=== PATIENT | female | born 1970 | race Caucasian/White ===

== ENCOUNTER 2023-11-11 08:23 | Outpatient (CLI) | payer OTHER, SELFPAY ==
--- OUTSIDE RECORDS SUMMARY | 2023-11-11 08:27 | XMS_ITS | Clinical Summary ---
Author Organization [facility] Address [place], [place] [address] Care Team Providers Care Thermodynamicist Name Role Phone Nonstaff, Doctor Primary Care Provider Unavailab le Allergies Active Allergy Reactions Criticality Noted Date Comments Penicillins 06/15/2006 OK with Augmentin Medications Medication Sig Dispensed Refills Start Date End Date Status CALCIUM ANTACID 500 MG CHEWABLE TAB 0 06/15/2006 Active ASPIRIN 325 MG TAB, DELAYED RELEASEIndications:Ty pe 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, not stated as uncontrolled one daily 0 06/16/2006 Active VALTREX 500 MG TABIndications:Genita l herpes, unspecified 1 CAPSULE BY MOUTH EVERY DAY 30 5 01/03/2007 Active ALBUTEROL SULFATE HFA 90 MCG/ACTUATION AEROSOL INHALER Inhale 2 puffs every 4 hours as needed 17 1 05/08/2007 Active NOVOLOG 100 UNIT/ML SUBQ CARTRIDGEIndications: Type 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, not stated as uncontrolled 47 units once daily 2 bottles 12 11/02/2007 Active SOFTCLIX LANCETSIndications:Ty pe 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, not stated as uncontrolled tests 6 times daily 1 box 12 11/03/2007 Active VITAMIN ORAL Take one daily Active ZYRTEC 10 MG TAB TAKE ONE TABLET BY MOUTH EVERY DAY 30 Each 11 11/05/2008 Active NASONEX 50 MCG/ACTUATION SPRAYIndications:Kane rgic rhinitis, cause unspecified USE 2 SPRAYS IN EACH NOSTRIL EVERY MORNING 17 Each 12 03/24/2009 Active NIFEdipine (PROCARDIA XL) 60 mg tablet TAKE ONE TABLET DAILY 30 Each 9 06/03/2009 Active blood sugar diagnostic (ONE TOUCH ULTRA TEST) strip Test Eight Times a day 100 Strip 0 11/17/2009 Active mupirocin 2% topical (BACTROBAN OINTMENT) 2 % ointment APPLY TO AFFECTED AREA THREE TIMES DAILY 22 g 0 09/17/2013 Active CPAPIndications:MICKEY (obstructive sleep apnea) CPAP machine for home use at pressure 9.4 cmw, nasal mask x1/3month with nasal pillows x 2/mo 1 Each 11 06/14/2023 Active Active Problems Problem Noted Date Diagnosed Date MICKEY 09/09/2005 AHI- 16 06/14/2023 HTN (hypertension) 06/30/2008 Overview: Updated by system to replace inactive record Allergic rhinitis, cause unspecified 11/02/2007 Tobacco use disorder 09/20/2006 Unspecified sleep apnea 06/16/2006 Overview: CPAP Genital herpes, unspecified 06/15/2006 Overview: Herpes, Genital Exercise induced bronchospasm 06/15/2006 DIABETES MELLITUS, INSULIN DEPENDENT (IDDM) A1C< 7.5 06/06/1972 Resolved Problems Problem Noted Date Diagnosed Date Resolved Date Headache(784.0) 06/15/2006 09/20/2006 Overview: Chronic Immunizations Name Administration Dates Next Due Pneumococcal conj 7-Valent (Prevnar 7) 8 Td (Age >=7 Years) 08/05/1997 Tdap 11/02/2007 Family History Medical History Relation Name Comments Heart Disease Father Hypertension Father Cancer Maternal Grandfather Leukemi a Other Maternal Grandmother Macular Degeneration Other Mother Fibromyalgia /C eliac/Colon Polyps Diabetes Other MGGM Other Paternal Grandmother alzheim ers Other Sister 2 Autoimmune D/o Relation Name Status Comments Father Alive Maternal Grandfather Maternal Grandmother Mother Alive Other Paternal Grandfather Paternal Grandmother Sister 1 Alive Sister 2 Social History Tobacco Use Types Packs/Day Years Used Date Smoking Tobacco: Former Cigarettes 0.3 18 1 - 03/06/2006 Passive Smoke Exposure: Past Comments:2-3 cigs per day Alcohol Use Standard Drinks/Week Comments Yes 0 (1 standard drink = 0.6 oz pur e alcohol) 1-2 x/week Social Connections Answer Date Recorded Frequency of Communication with Friends and Fami ly Not on file 06/14/2023 Sex and Gender Information Value Date Recorded Sex Assigned at Not on file Gender Identity Not on file Sexual Orientation Not on file Obstetrics History Para Term AB IAB SAB Ectopic Multiple Livin g Live Births 1 0 0 0 1 0 1 0 0 0 Date Outcome GA Total Labor Labor/2nd/3rd Weight Sex Delivery Anes PTL Tory A1 A5 Name Cl in 05/03 SAB 10w 0d Last Filed Vital Signs Vital Sign Reading Time Taken Comments Blood Pressure 166/80 06/14/2023 4:15 PM PROCESS DEVELOPMENT CHEMIST Pulse 75 06/14/2023 4:13 PM PROCESS DEVELOPMENT CHEMIST Temperature 37.6 ??C (99.7 ??F) 04/09/2008 1:32 PM CS T Respiratory Rate 18 03/10/2009 9:27 AM CDT Oxygen Saturation 100% 06/14/2023 4:13 PM PROCESS DEVELOPMENT CHEMIST Inhaled Oxygen Concentration - - Weight 69.5 kg (153 lb 3.2 oz) 06/14/2023 4:13 P M PROCESS DEVELOPMENT CHEMIST Height 164.5 cm (5' 4.75) 06/14/2023 4:13 PM CS T Body Mass Index 25.69 06/14/2023 4:13 PM PROCESS DEVELOPMENT CHEMIST Plan of Treatment Health Maintenance Due Date Last Done Comments Pneumococcal series for age 6-64 (1 of 2 - PCV) 1974 08/14/1997 Depression screening for age 12+ 1980 HIV for age 15-65 11/29/1983 Hepatitis C screening for ag e 18-79 1986 Hepatitis B series for Diabe tiffanie (1 of 3 - 19+ 3-dose series) 11/29/1987 Colonoscopy through age 75 2013 Lipids for age 45-75 2013 06/28/2008, 03/06/2007, 01/13/2006, Additional history exists Mammogram for age 45-75 2013 06/21/2006 Tetanus booster 11/01/2017 11/02/2007, 08/05/1997 Zoster (shingles) series for age 50+ (1 of 2) 2018 Pap test for age 21-65 10/09/2021 9, 10/09/2018, 08/17/2013, Additional history exists COVID-19 vaccine series (2022- season) 2023 02/18/2022, 04/15/2021, 07/31/2020, Additional history exists Influenza for age 50-64 02/05/2024 BMI (ht and wt on same day) for age 18+ 06/14/2024 06/14/2023 Tdap Completed 11/02/2007 Procedures Procedure Name Priority Date/Time Associated Diagnosis Comments ROUTE SPECIALIST THIN PREP PAP SCREEN IMAGED Routine 10/09/2018 9:00 AM CDT LIPID PANEL Routine 06/28/2008 9:12 AM PROCESS DEVELOPMENT CHEMIST DIABETES MELLITUS, INSULIN DEPENDENT (IDDM) XR MAMMO SCREENING BILATERAL (IA) Routine 06/21/2006 Screening Mammogram Other from Last 3 Months or Most Recently Relevant to Health Maintenance Results * ROUTE SPECIALIST THIN PREP PAP SCREEN IMAGED (10/09/2018 9:00 AM CDT) Case Report Gynecologic Cytology Report ? Case: [id number] ? Authorizing Provider: ??Rachel Deshpande MD ?Collected: ? 10/09/2018 0900 ? Ordering Location: ? [facility] ?Received: ?10/10/2018 0943 ? First Screen: ?Kade, Scott ? Specimen: ?ROUTE SPECIALIST ThinPrep Vial Screening, Cervical/Vaginal ? 10/18/2018 2:55 PM CDT [facility] INTERPRETATION/ RESULT NEGATIVE FOR INTRAEPITHELIAL LESION OR MALIGNANCY (NIL) (none) 10/18/2018 2:55 PM CDT [facility] IMEN ADEQUACY Satisfactory for evaluation Endocervical component present 10/18/2018 2:55 PM CDT [facility] HPV REQUEST HPV and PAP 10/18/2018 2:55 PM CDT [facility] Date of LMP 10/03/2018 10/18/2018 2:55 PM CDT [facility] Last Pap Date 08/17/2013 10/18/2018 2:55 PM CDT [facility] Last Pap Result NIL 9 2:55 PM CDT [facility] Comment:-HPV Automated Review Successful 10/18/2018 2:55 PM CDT [facility] Comment:Specimen processed s uccessfully by automated microsoft net developer device, ThinPrep Imaging System, [employer] ANCILLARY TESTING ROUTE SPECIALIST HPV Ordered, Please see separate report 10/18/2018 2:55 PM CDT [facility] Note The pap test is a screening technique, not a diagnostic procedure. ??It is used primarily to screen for squamous cancers and precursor lesions. ??Published studies have shown that it is subject to both false negative and false positive results. ??The pap test should not be used as the sole means to diagnose or exclude pre-malignant and malignant lesions. Cytology is screened and interpreted at [facility] - [address], [place] [address] and [facility] - [address]; [place] [address] and [facility] - [address]; [place] [address] and [facility] [address]; [place] [address] 10/18/2018 2:55 PM CDT [facility] Other (Cervical/Vagina l) 10/09/2018 9:00 AM CDT 10/10/2018 9:43 AM CDT Rachel Deshpande MD PATHOLOGY/CYTOLOGY [facility] [address] [place] [address], * LIPID PANEL (06/28/2008 9:12 AM PROCESS DEVELOPMENT CHEMIST) CHOLESTEROL,TOTAL 192 110 - 199 mg/dL [facility] TRIGLYCERIDES 73 <150 mg/dL [facility] HDL CHOLESTEROL 86 >40 mg/dL [facility] CHOL/HDL RATIO 2.23 <4.51 [facility] LDL CHOLESTEROL 91 <131 mg/dL [facility] PATIENT STATUS Fasting [facility] Blood specimen (specimen) BLOOD SPECIMEN / Unknown 06/28/2008 9:12 AM PROCESS DEVELOPMENT CHEMIST 06/28/2008 9:00 AM PROCESS DEVELOPMENT CHEMIST Pramod Savage MD CHEMISTRY [facility] [address] [place] [address] * XR MAMMO SCREENING BILATERAL (06/21/2006) Anatomical Region Laterality Modality BREASTS, Breast Left, Breast Right Bilateral Other Nicolasa Pimentel CONTINUITY PERSON MAMMO from Last 3 Months or Most Recently Relevant to Health Maintenance Care Teams Thermodynamicist Relationship Specialty Start Date End Date Nonstaff, Doctor NON STAFF DOCTOR PCP - General 11/14/09
--- OUTSIDE RECORDS SUMMARY | 2023-11-11 08:28 | XMS_ITS | Encounter Summary ---
Author Organization [facility] Address [address], [place] [address] Care Team Providers Care Yarn Bleaching Machine Operator Name Role Phone Daniel Zelaya MD Primary Care Provider [phone] Encounter Details Date Type Department Care Team (Late st Contact Info) Description 11/08/2023 E-Visit [place] [address] Family Medicine [address] [place] [address] [place] [address] [place], [place] [id number] Social History Tobacco Use Types Packs/Day Years Used Date Smoking Tobacco: Former Cigarettes 0 06/06/1992 - 06/06/2007 Smokeless Tobacco: Never Alcohol Use Standard Drinks/Week Comments Yes 2 (1 standard drink = 0.6 oz pur e alcohol) PHQ-2 Answer Date Recorded PHQ-2 Score 0 11/03/2023 Financial Resource Strain Answer Date R ecorded Is it hard for you to pay fo r the very basics like food, housing, medical care or heating? No 11/08/2022 Food Insecurity Answer Date Recorded Does your food run out before you have the money to buy more? No 11/08/2022 Transportation Needs Answer Date Record ed Does a lack of transportatio n keep you from your medical appointments or from getting your medications? No 023 Sex and Gender Information Value Date Recorded Sex Assigned at Female 05/05/2021 8:28 PM MAINTENANCE DATA ANALYST Gender Identity Female 05/05/2021 8:28 PM MAINTENANCE DATA ANALYST Sexual Orientation Straight 05/05/2021 8: 28 PM MAINTENANCE DATA ANALYST documented as of this encounter Plan of Treatment Upcoming Encounters Date Type Department Care Team (Late st Contact Info) Description 11/22/2023 3:00 PM CDT Appointment [facility] [address] [place] [address] Demetris Alvarez Scheduled Procedures Name Priority Associated Diagnoses Date/Ti me RELEASE TRIGGER FINGER Trigger ring finger of right hand Trigger ring finger of left hand documented as of this encounter Visit Diagnoses Not on filedocumented in this encounter Care Teams Yarn Bleaching Machine Operator Relationship Specialty Start [place] [address] [place] [address] PCP - General Family Practice 08/23/22 documented as of this encounter
--- OUTSIDE RECORDS SUMMARY | 2023-11-11 08:28 | XMS_ITS | Encounter Summary ---
Author Organization [facility] Address [address], [place] [address] Care Team Providers Care Patient Escort Name Role Phone Daniel Zelaya MD Primary Care Provider [phone] Reason for Referral * Procedure/Equipment (Routine) - New Request Specialty Diagnoses / Procedures Referred By Kristie white Referred To Contact Diagnoses Charcot's joint of foot in type 1 diabetes mellitus (HRC) Pre-ulcerative calluses Type 1 diabetes mellitus with peripheral autonomic neuropathy (HRC) Suraj Barriga DPM [address] [place] [address] Referral ID Status Reason Start Date Expiration Date V isits Requested Visits Authorized [id number] New Request 10/25/2023 01/23/2025 1 1 Scheduling Instructions Your clinician has recommended an appointment with [facility]. You may call [phone] to schedule your appointment. We suggest you call your health insurance company about your coverage and benefits for this appointment. Question Answer Direct patient to which orthotic vendor? [facility]? Multi-Density Accomodative Insert B/L Reason for Visit * Reason Comments Orders Needed Encounter Details Date Type Department Care Team (Late st Contact Info) Description 10/25/2023 Telephone [facility] [address] [facility] [address] [place] [address] Suraj Barriga DPM [address] [place] [address] Orders Needed Social History Tobacco Use Types Packs/Day Years Used Date Smoking Tobacco: Former Cigarettes 0 06/06/1992 - 06/06/2007 Smokeless Tobacco: Never Alcohol Use Standard Drinks/Week Comments Yes 2 (1 standard drink = 0.6 oz pur e alcohol) PHQ-2 Answer Date Recorded PHQ-2 Score 0 09/22/2023 Financial Resource Strain Answer Date R ecorded [...] Sex Assigned at Female 05/05/2021 8:28 PM MAGENTO DEVELOPER Gender Identity Female 05/05/2021 8:28 PM MAGENTO DEVELOPER Sexual Orientation Straight 05/05/2021 8: 28 PM MAGENTO DEVELOPER documented as of this encounter Nursing Notes * Amparo Bunn RN - 10/26/2023 8:11 AM CDT Patient was called. She will call and set up an appointment with O&P. No other questions at this time. AFIA Christensen * Suraj Barriga DPM - 10/25/2023 8:48 PM CDT Order signed * Amparo Bunn RN - 10/25/2023 2:13 PM CDT Patient stopped into the [place] [facility] [employer] [facility] front desk clerk today stating she was supposed to get an order for Orthotics at her last visit, and she didn't. [place]oor Operator stated I would route this over to Dr. Barriga for orders. [place] Operator will call patient once this is complete. Amparo, RN documented in this encounter Plan of Treatment Upcoming Encounters Date Type Department Care Team (Late st Contact Info) Description 11/22/2023 3:00 PM CDT Appointment [facility] [address] [place] [address] Demetris Alvarez Scheduled Procedures Name Priority Associated Diagnoses Date/Ti me RELEASE TRIGGER FINGER Trigger ring finger of right hand Trigger ring finger of left hand Scheduled Referrals Name Type Priority Associated Diagnoses Orde r Schedule Orthotics Order Referral Routine Charcot's joint of foot in type 1 diabetes mellitus (HRC) Pre-ulcerative calluses Type 1 diabetes mellitus with peripheral autonomic neuropathy (HRC) Ordered: 10/25/2023 documented as of this encounter Visit Diagnoses Diagnosis Charcot's joint of foot in type 1 diabetes mellitus (HRC)- Primary Type I (juvenile type) diabetes mellitus with neurological manifestations, not stated as uncontrolled Pre-ulcerative calluses Corns and callosities Type 1 diabetes mellitus with peripheral autonomic neuropathy (HRC) Type I (juvenile type) diabetes mellitus with neurological manifestations, not stated as uncontrolled documented in this encounter Care Teams Patient Escort Relationship Specialty [place] [address] [place] [address] PCP - General Family Practice 08/23/22 documented as of this encounter
--- OUTSIDE RECORDS SUMMARY | 2023-11-11 08:28 | XMS_ITS | Encounter Summary ---
[facility] Address [address], [place] [address] Care Team Providers Care Darkroom Worker Name Role Phone Daniel Zelaya MD Primary Care Provider [phone] Reason for Visit * Reason Comments PRE-OP EXAM Encounter Details Date Type Department Care Team (Latest Contact Info) Description 11/03/2023 2:00 PM CDT Pre-Op Visit [place] [address] [facility] [id number] [place] [address] [phone] [place] [address] [place] [address] Preop examination (Primary Dx); Polyp of colon, unspecified part of colon, unspecified type; Dyslipidemia (HRC); Essential hypertension (HRC); Charcot's joint arthropathy in type 1 diabetes mellitus (HRC); Type 1 diabetes mellitus with diabetic polyneuropathy (HRC); Depression, recurrent (HRC) Social History Tobacco Use Types Packs/Day Years [...] Sex Assigned at Female 05/05/2021 8:28 PM FLARE MAKER Gender Identity Female 05/05/2021 8:28 PM FLARE MAKER Sexual Orientation Straight 05/05/2021 8: 28 PM FLARE MAKER documented as of this encounter Last Filed Vital Signs Vital Sign Reading Time Taken Comments Blood Pressure 134/80 11/03/2023 2:03 PM CDT Pulse 81 11/03/2023 2:03 PM CDT Temperature - - Respiratory Rate 16 11/03/2023 2:03 PM CDT Oxygen Saturation - - Inhaled Oxygen Concentration - - Weight 69.4 kg (153 lb) 11/03/2023 2:03 PM CDT Height - - Body Mass Index 26.47 10/25/2023 2:34 PM CDT documented in this encounter Patient Instructions * Patient Instructions* Daniel Zelaya MD - 11/03/2023 2:00 PM CDT Pre-op Instructions: Follow clean out instructions per GI. You can take your medications with a small sip of water unless directed otherwise. lisinopril (ZESTRIL) 20 MG tablet [[id number]] - Continue taking usual doses of this medication. aspirin, enteric-coated 81 MG enteric coated tablet [[id number]] - Do not take for 1 week prior to procedure. HUMALOG 100 UNIT/ML injection vial [[id number]], insulin glargine (BASAGLAR) 100 UNIT/ML KWIKPEN [[id number]], insulin lispro (HUMALOG) 100 UNIT/ML injection vial [[id number]], insulin lispro (HUMALOG) 100 UNIT/ML pen cartridge [[id number]] - Consult with your wholesale manager. Follow your individualized medication recommendations as described above. In addition, please stop all acnc-nrb-loyoduu medications including aspirin, ibuprofen (Advil, Motrin), naproxen (Aleve, Naprosyn), herbal remedies and supplements one week prior to procedure unless directed otherwise by your care team. You may continue to take acetaminophen (Tylenol) up to the dayof your procedure. Continue all other medications as currently taking. Let your care team know if you have questions. On the day of your procedure, do not wear any hair product including hair sprays and gels and avoidusing body sprays and deodorants/antiperspirants. Bring with you to the site of the procedure: Any oral appliances or CPAP equipment related to sleep apnea Any other health-related equipment or devices you use daily documented in this encounter Progress Notes * Daniel Zelaya MD - 11/03/2023 2:00 PM CDT Pre-Operative Assessment 11/03/2023 ET Amb PreOp Assessment Details Procedure colonoscopy Surgeon Dr. Chowdary Location Other Other Location Name [facility] Procedure Date 11/11/2023 Tonia Nieves is a 52 y.o. old female here for pre-operative evaluation for procedure noted above. The patient has had surgery previously without any anesthesia complications and denies any family history ofanesthesia complications. She denies any chest pain or shortness of breath with exertion and has otherwise been feeling well and at baseline. They voice no further concerns at this time. Patient Active Problem List Diagnosis Date Noted Major depressive disorder, single episode, unspecified ([facility]) Trigger ring finger of right hand 02/22/2023 Trigger ring finger of left hand 02/22/2023 Charcot's joint arthropathy in type 1 diabetes mellitus ([facility]) 11/09/2022 Overview Note: Managed by Podiatry Dr. Barriga. 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 Uses insulin pump. Insulin pump status ([facility]) 02/16/2012 Encounter for long-term (current) use of insulin ([facility]) 02/16/2012 Type 1 diabetes mellitus with neurological manifestations ([facility]) 02/11/2012 Overview Note: Managed by Endocrinology. Uses insulin pump. Diabetic polyneuropathy ([facility]) 02/11/2012 Exercise induced bronchospasm ([facility]) 06/15/2006 Genital herpes ([facility]) 06/15/2006 Overview Note: Herpes, Genital Past Medical History: Diagnosis Date Alcohol ingestion, more than 4 drinks/day 02/11/2012 DM type 1 (diabetes mellitus, type 1) ([facility]) 10/19/2012 Polyneuropathy in diabetes(357.2) ([facility]) 02/11/2012 Type I (juvenile type) diabetes mellitus with neurological manifestations, not stated as uncontrolled(250.61) ([facility]) 02/11/2012 Past Surgical History: Procedure Laterality Date CATARACT REMOVAL Bilateral Current Outpatient Medications Medication Instructions amLODIPine (NORVASC) 2.5 mg, Oral, DAILY aspirin, enteric-coated 81 mg, Oral, DAILY BD VEO INSULIN SYRINGE U/F 0.3ml 31g x 15/64 BIOTIN OR 5,000 mg, Oral buPROPion (WELLBUTRIN XL) 150 mg, Oral, DAILY Calcium-Vitamins C & D (CALCIUM/C/D OR) No dose, route, or frequency recorded. Continuous Blood Gluc Chef French (DEXCOM G6 PRODUCTION PLANNING SUPERVISOR) [place] Use once Continuous Blood Gluc Sensor (DEXCOM G6 SENSOR) Use once every 10 days Continuous Blood Gluc Transmit (DEXCOM G6 TRANSMITTER) CHANGE ONCE EVERY 90 DAYS. drug not in computer Hair volume estradiol (VIVELLEDOT) 0.05 MG/24HR biweekly patch APPLY 1 PATCH TOPICALLY TO THE SKIN 2 TIMES A WEEK fluticasone propionate (FLONASE) 50 MCG/ACT nasal solution 2 Sprays, Both Nostrils, DAILY glucagon (rDNA) (GLUCAGON) 1 mg, Intramuscular, PRN HUMALOG 100 UNIT/ML injection vial TAKE UP TO 55 UNITS DAILY insulin glargine (BASAGLAR) 100 UNIT/ML KWIKPEN For use when off insulin pump. Max daily of 40 units. insulin lispro (HUMALOG) 100 UNIT/ML injection vial Take 55 units daily in pump. Ok to dispense at lispro insulin lispro (HUMALOG) 100 UNIT/ML pen cartridge Inject up to 55 units daily via pump Insulin Pen Needle (INSULIN PEN NEDLES) 32G X 4 MM lisinopril (ZESTRIL) 20 mg, Oral, DAILY loratadine (CLARITIN) 10 mg, Oral, DAILY (NS) Magnesium 400 MG CAPS No dose, route, or frequency recorded. Multiple Vitamins-Minerals (MULTIVITAMIN ADULT OR) 1 Tablet, DAILY (NS) mupirocin (BACTROBAN) 2 % ointment Apply to affected area twice a day for 10 days. omega-3 fatty acids (AKA MAXEPA,FISH OIL) 2 g, Oral, DAILY progesterone (PROMETRIUM) 100 mg, Oral, DAILY rosuvastatin (CRESTOR) 2.5 mg, Oral, DAILY Allergies Allergen Reactions Sulfa Antibiotics Other, see comments and Hives Itchy, difficult breathing Sulfamethoxazole-Trimethoprim Hives Tegaderm Hydrocolloid [Duoderm Hydroactive] Rash If pt sprays area with benadryl or betadine prior to applying the tegaderm film pt does not get rash/pt. Social History Occupational History Not on file Tobacco Use Smoking status: Former Current packs/day: 0.00 Types: Cigarettes Start date: 06/06/1992 Quit date: 06/06/2007 Years since quittin.4 Smokeless tobacco: Never Vaping Use Vaping status: Never Used Substance and Sexual Activity Alcohol use: Yes Alcohol/week: 2.0 - 3.0 standard drinks of alcohol Types: 2 - 3 Standard drinks or equivalent per week Drug use: Not on file Sexual activity: Yes Partners: Male control/protection: None Patient's last menstrual period was 04/21/2022 (approximate). History reviewed. No pertinent family history. Review of Systems: 11/03/2023 ET Amb PreOp Assessment Sx Have you had a heart attack in the last 30 days? No Have you experienced chest tightening or chest pressure with activity? No Do you wake at night with difficulty breathing? No Do you have swelling in your feet or ankles? No Do you get short of breath if lying flat at night? No Do you hear wheezing or whistling when you breathe? No Have you had a cough, runny nose, or cold symptoms in the last 2 weeks? No Have you tested positive for Covid in the last 6 months? No Do you have a long-standing cough? No Do you snore or are you sleepy during the day? Yes Do you have any symptoms due to a recent concussion? No Have you taken Aspirin, Ibuprofen (Advil) or Naproxen (Aleve) in the last 7 days? Yes Do you or close relatives have a history of a severe or life-threatening reaction to anesthesia? No Estimated Functional Capacity: Can you climb one flight of stairs, or walk up a gradual uphill without stopping? yes, functional capacity is more than or equal to 4 METS Objective BP 134/80 (BP Location: Left Arm, BP Cuff Size: Regular) Pulse 81 Resp 16 Wt 153 lb (69.4 kg) LMP 04/21/2022 (Approximate) BMI 26.47 kg/m?? Physical Exam: General Appearance: alert, well appearing, and in no apparent distress Eyes: conjunctiva normal ENT: oropharynx clear Neck: no cervical lymphadenopathy Heart: regular rate and rhythm and no murmurs, gallops or rubs Lungs: clear to ausculation and no wheezes, rales or rhonchi Abdomen: soft, nondistended, nontender, no palpable masses, and no organomegaly Extremities: no edema Skin: no rashes on exposed skin Neurologic: normal speech Data: Labs: Lab Results Component Value Date Hemoglobin A1C 6.7 (H) 05/16/2020 Hemoglobin A1C (Rapid) 6.4 (H) 10/25/2023 Lab Results Component Value Date WBC 5.0 10/25/2023 RBC 3.70 (L) 10/25/2023 Hemoglobin 11.5 (L) 10/25/2023 HCT 34.7 (L) 10/25/2023 MCV 93.8 10/25/2023 RDW 12.9 10/25/2023 Platelets 237 10/25/2023 ECG: Not indicated for this procedure. Assessment/Plan Patient is medically optimized for planned procedure(s). ICD-10-CM 1. Preop examination Z01.818 2. Polyp of colon, unspecified part of colon, unspecified type K63.5 3. Dyslipidemia (HRC) E78.5 4. Essential hypertension (HRC) I10 5. Charcot's joint arthropathy in type 1 diabetes mellitus (HRC) E10.610 6. Type 1 diabetes mellitus with diabetic polyneuropathy (HRC) E10.42 7. Depression, recurrent (HRC) F33.9 Special risks: Patient's diabetes adequately controlled (A1C < 8). Medication recommendations: Patient Instructions Pre-op Instructions: Follow clean out instructions per GI. You can take your medications with a small sip of water unless directed otherwise. lisinopril (ZESTRIL) 20 MG tablet [[id number]] - Continue taking usual doses of this medication. aspirin, enteric-coated 81 MG enteric coated tablet [[id number]] - Do not take for 1 week prior to procedure. HUMALOG 100 UNIT/ML injection vial [[id number]], insulin glargine (BASAGLAR) 100 UNIT/ML KWIKPEN [[id number]], insulin lispro (HUMALOG) 100 UNIT/ML injection vial [[id number]], insulin lispro (HUMALOG) 100 UNIT/ML pen cartridge [[id number]] - Consult with your wholesale manager. Follow your individualized medication recommendations as described above. In addition, please stop all fpct-cvp-lcpkmbx medications including aspirin, ibuprofen (Advil, Motrin), naproxen (Aleve, Naprosyn), herbal remedies and supplements one week prior to procedure unless directed otherwise by your care team. You may continue to take acetaminophen (Tylenol) up to the dayof your procedure. Continue all other medications as currently taking. Let your care team know if you have questions. On the day of your procedure, do not wear any hair product including hair sprays and gels and avoidusing body sprays and deodorants/antiperspirants. Bring with you to the site of the procedure: Any oral appliances or CPAP equipment related to sleep apnea Any other health-related equipment or devices you use daily Electronically signed by: Daniel Zelaya MD 11/03/2023, 2:19 PM documented in this encounter Plan of Treatment Upcoming Encounters Date Type Department Care Team (Late st Contact Info) Description 11/22/2023 3:00 PM CDT Appointment [facility] [address] [place] [address] Demetris Alvarez Scheduled Procedures Name Priority Associated Diagnoses Date/Ti me RELEASE TRIGGER FINGER Trigger ring finger of right hand Trigger ring finger of left hand documented as of this encounter Visit Diagnoses Diagnosis Preop examination- Primary Preoperative examination, unspecified Polyp of colon, unspecified part of colon, unspecified type Dyslipidemia (HRC) Other and unspecified hyperlipidemia Essential hypertension (HRC) Unspecified essential hypertension Charcot's joint arthropathy in type 1 diabetes mellitus (HRC) Type II or unspecified type diabetes mellitus with neurological manifestations, not stated as uncontrolled Type 1 diabetes mellitus with diabetic polyneuropathy (HRC) Type I (juvenile type) diabetes mellitus with neurological manifestations, not stated as uncontrolled Depression, recurrent (HRC) Major depressive disorder, recurrent episode, unspecified documented in this encounter Care Teams Darkroom Worker Relationship Specialty [place] [address] [place] [address] PCP - General Family Practice 08/23/22 documented as of this encounter
--- OUTSIDE RECORDS SUMMARY | 2023-11-11 08:28 | XMS_ITS | Encounter Summary ---
Author Organization [facility] Address [address] [address] Care Team Providers Care Mechanical Door Repairer Name Role Phone Daniel Zelaya MD Primary Care Provider [phone] Encounter Details Date Type Department Care Team (Late st Contact Info) Description 10/27/2023 Notes/Orders [place] [address] [facility] Medicine [address] [place] [phone] [place] [address] [place] [address] Type 1 diabetes mellitus without complication (HRC) (Primary Dx) Social History Tobacco Use Types Packs/Day Years [...] Sex Assigned at Female 05/05/2021 8:28 PM PARK MAINTAINER Gender Identity Female 05/05/2021 8:28 PM PARK MAINTAINER Sexual Orientation Straight 05/05/2021 8: 28 PM PARK MAINTAINER documented as of this encounter Plan of Treatment Upcoming Encounters Date Type Department Care Team (Late st Contact Info) Description 11/22/2023 3:00 PM CDT Appointment [facility] [address] [place] [address] Demetris Alvarez Scheduled Procedures Name Priority Associated Diagnoses Date/Ti me RELEASE TRIGGER FINGER Trigger ring finger of right hand Trigger ring finger of left hand documented as of this encounter Results * (ABNORMAL) Hgb A1C (10/25/2023 4:04 PM CDT) Hemoglobin A1C (Rapid) 6.4(H) <=5.6 % 10/27/2023 12:07 PM CDT [facility] Estimated Average Glucose (Calc) 137 < 117 mg/dL 10/27/2023 12:07 PM CDT [facility] Comment:Estimated average gl ucose (eAG) converts A1c into glucose units (mg/dL) and estimates average glucose over the past approximately 3 months. The eAG reference interval (<117 mg/dL) corresponds to an A1c of <5.7%. Blood Venipuncture / Unknown 10/25/2023 4:04 PM CDT 10/25/2023 4:07 PM CDT Narrative [facility] - 10/27/2023 12:07 PM CDT For patients not previously diagnosed with diabetes: 5.7-6.4%: Increased risk for diabetes 6.5% and greater: Diagnostic for diabetes For patients diagnosed with diabetes: <8.0%: Goal of therapy for ages 18-75 Clinicians may recommend a higher or lower goal for specific individuals. The test method used for this Hemoglobin A1c result can experience interference from elevated hemoglobin and other hemoglobin variants. In patients with results that do not correlate clinically, contact the lab for further direction. Daniel Zelaya MD LAB_1 [facility] [address] [place] [address], [facility] documented in this encounter Visit Diagnoses Diagnosis Type 1 diabetes mellitus without complication (HRC)- Primary Type 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, not stated as uncontrolled documented in this encounter Care Teams Mechanical Door Repairer Relationship Specialty [place] [address] [place] [address] PCP - General Family Practice 08/23/22 documented as of this encounter
--- OUTSIDE RECORDS SUMMARY | 2023-11-11 08:28 | XMS_ITS | Encounter Summary ---
Author Organization [facility] Address [address] [place] [address] Care Team Providers Care Wheat Washer Name Role Phone Daniel Zelaya MD Primary Care Provider [phone] Reason for Visit * Reason Comments PRE-OP EXAM Encounter Details Date Type Department Care Team (Late st Contact Info) Description 11/07/2023 Telephone [place] [address] Family Medicine [address] [place] [address] [place] [address] [place] [address] PRE-OP EXAM Social History Tobacco Use Types Packs/Day Years [...] Sex Assigned at Female 05/05/2021 8:28 PM FORM RAISER Gender Identity Female 05/05/2021 8:28 PM FORM RAISER Sexual Orientation Straight 05/05/2021 8: 28 PM FORM RAISER documented as of this encounter Nursing Notes * Barbara Carranza - 11/07/2023 10:12 AM CDT Faxed pre-op to [facility] at [phone] and received confirmation it went through * Lizbeth Madrid - 11/07/2023 9:42 AM CDT Other Questions/Concerns/FYI Is this a symptom? No What is your question or concern? Pre op [facility] calling has not received please fax to [phone] [facility] [place] Have you recently been seen for this? Yes: 11/03/23 Is it okay to leave a detailed message on your voicemail? Yes Is there anything else I can help you with today? documented in this encounter Plan of Treatment Upcoming Encounters Date Type Department Care Team (Late st Contact Info) Description 11/22/2023 3:00 PM CDT Appointment [facility] [address] [place] [address] Demetris Alvarez Scheduled Procedures Name Priority Associated Diagnoses Date/Ti me RELEASE TRIGGER FINGER Trigger ring finger of right hand Trigger ring finger of left hand documented as of this encounter Visit Diagnoses Not on filedocumented in this encounter Care Teams Wheat Washer Relationship Specialty [place] [address] [place] [address] PCP - General Family Practice 08/23/22 documented as of this encounter
--- OUTSIDE RECORDS SUMMARY | 2023-11-11 08:28 | XMS_ITS | Referral Summary ---
Author Organization [facility] Address [address] [place] [address] Care Team Providers Care Veneer Matcher Name Role Phone Clinic, [facility] Allergies Active Allergy Reactions Criticality Noted Date Comments Sulfamethoxazole-Trime thoprim 02/08/2015 Sulfa Antibiotics Hives,Other (See Comments) High 08/15/2013 Itchy, difficult breathing Medications Medication Sig Dispensed Refills Start Date End Date Status insulin aspart (NOVOLOG) 100 UNIT/ML injection Inject Subcutaneous See Admin Instructions. Per pump Active buPROPion (WELLBUTRIN SR) 150 MG 12 hr tablet Take 150 mg by mouth 2 times daily. Active ASPIRIN LOW DOSE 81 MG EC tabletIndications: DM type 1 (diabetes mellitus, type 1) (H),HTN (hypertension),Ins ulin pump titration Take 162 mg by mouth daily. Active loratadine (CLARITIN) 10 MG tabletIndications: DM type 1 (diabetes mellitus, type 1) (H),HTN (hypertension),Ins ulin pump titration Take 10 mg by mouth daily. Active fish oil-omega-3 fatty acids (FISH OIL) 1000 MG capsuleIndications :DM type 1 (diabetes mellitus, type 1) (H),HTN (hypertension),Ins ulin pump titration Take 1 g by mouth daily. Active Multiple Vitamin (MULTI-VITAMIN) per tabletIndications: DM type 1 (diabetes mellitus, type 1) (H),HTN (hypertension),Ins ulin pump titration Take 1 tablet by mouth daily. Active Ascorbic Acid (VITAMIN C) 500 MG CHEWIndications:DM type 1 (diabetes mellitus, type 1) (H),HTN (hypertension),Ins ulin pump titration Take 1 chew tab by mouth daily. Active Calcium Citrate-Vitamin D (CALCIUM CITRATE + D PO)Indications:DM type 1 (diabetes mellitus, type 1) (H),HTN (hypertension),Ins ulin pump titration Take 1 tablet by mouth daily. Active Folic Acid 200 MCG TABSIndications:DM type 1 (diabetes mellitus, type 1) (H),HTN (hypertension),Ins ulin pump titration Take 1 tablet by mouth daily. Active lisinopril (PRINIVIL,ZESTRIL) 10 MG tabletIndications: Hypertension, benign Take 1 tablet by mouth daily. 90 tablet prn 06/24/2011 Active INSULIN PUMP - OUTPATIENTIndicati ons:Insulin pump titration Inject Subcutaneous. Date last updated: 06/24/2011 [employer]: Model 522 BASAL RATES and times: 12 AM (midnight): 0.65 units/hour 4 AM: 0.6 units/hour 2 PM: 0.65 units/hour 8 PM: 0.55 units/hour CARB RATIO and times: 12 AM (midnight): 11 5 AM: 11 12 PM (noon): 11 8 PM: 11 Corection Factor (Sensitivity) and times: 12 AM (midnight): 90 mg/dL BLOOD GLUCOSE TARGET and times: 12 AM (midnight): 100-120 6 AM: 80-100 9 PM: 100-120 Active Insulin Time: 4 hours Carelink username: Criss Carelink passord: [email or web address] 1 pump 0 06/24/2011 Active Atorvastatin Calcium (LIPITOR PO) Active oxyCODONE-acetamin ophen (PERCOCET) 5-325 MG per tablet Take 1-2 tablets by mouth every 4 hours as needed for pain 15 tablet 0 05/22/2016 Active insulin glargine (LANTUS SOLOSTAR) 100 UNIT/ML pen Inject 8 Units Subcutaneous At Bedtime 3 mL 12/07/2020 Active Active Problems Problem Noted Date Diagnosed Date Hypertension, benign 06/24/2011 Type 1 diabetes, HbA1c goal < 7% 12/29/2010 CARDIOVASCULAR SCREENING; LDL GOAL LESS THAN 100 12/29/2010 Resolved Problems Problem Noted Date Diagnosed Date Resolved Date Insulin pump status--Click t o open for pump settings 12/29/2010 06/24/2011 Overview: Inject Subcutaneous. Date last updated: February 22, 2011 [employer] Minimed: Model 522 BASAL RATES and times: 12 AM (midnight): 0.6 units/hour ; 4 AM: 0.7 units/hour; 2 PM: 0.7 units/hour ; 8 PM: 0.6 units/hour CARB RATIO and times: 12 AM (midnight): 11; 5 AM: 10; 12 PM (noon): 10; 8 PM: 11; Corection Factor (Sensitivity) and times: 12 AM (midnight): 100 mg/dL; 5 AM: 85 mg/dL; 12 PM (noon): 95 mg/dL; 8 PM: 100 mg/dL BLOOD GLUCOSE TARGET and times: 12 AM (midnight): 80 - 100 Active Insulin Time: 4 hours Social History Tobacco Use Types Packs/Day Years Used Date Smoking Tobacco: Former Cigarettes 0.3 20 0 06/10/1988 - 06/10/2008 Smokeless Tobacco: Never Alcohol Use Standard Drinks/Week Comments Yes 0 (1 standard drink = 0.6 oz pur e alcohol) wine on the w/e Adolescent Education Answer Date Record ed Getting School Help Needed Not on file 02/27 Sex and Gender Information Value Date Recorded Sex Assigned at Not on file Gender Identity Not on file Sexual Orientation Not on file Last Filed Vital Signs Vital Sign Reading Time Taken Comments Blood Pressure 111/69 10/23/2022 3:36 PM CDT Pulse 78 10/23/2022 3:36 PM CDT Temperature 36.9 ??C (98.5 ??F) 10/23/2022 3:36 PM CD T Respiratory Rate 18 12/07/2020 5:02 PM CDT Oxygen Saturation 98% 10/23/2022 3:36 PM CDT Inhaled Oxygen Concentration - - Weight 67.6 kg (149 lb 1.6 oz) 02/08/2015 3:48 P M CDT Height 162.6 cm (5' 4) 02/08/2015 3:48 PM CDT Body Mass Index 25.59 02/08/2015 3:48 PM CDT Plan of Treatment Not on file Procedures Procedure Name Priority Date/Time Associated Diagnosis Comments MA SCREENING BILATERAL W/ ALIDA Routine 08/11/2022 9:12 AM 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 02/27/2011 4:12 PM CDT DM type 1 (diabetes mellitus, type 1) (H) HTN (hypertension) Insulin pump titration ALBUMIN RANDOM URINE QUANTITATIVE Routine 02/22/2011 3:34 PM CDT DM type 1 (diabetes mellitus, type 1) (H) HTN (hypertension) Insulin pump titration COMPREHENSIVE METABOLIC PANEL Routine 02/22/2011 3:33 PM CDT DM type 1 (diabetes mellitus, type 1) (H) HTN (hypertension) Insulin pump titration HEMOGLOBIN A1C Routine 02/22/2011 3:33 PM CDT DM type 1 (diabetes mellitus, type 1) (H) HTN (hypertension) Insulin pump titration LIPID PROFILE Routine 07/24/2009 from Last 3 Months or Most Recently Relevant to Health Maintenance Results * Microalbumin quantitative random urine (02/22/2011 3:34 PM CDT) Creatinine Urine 58 mg/dL [facility] Albumin Urine mg/L 3 mg/L [facility] Albumin Urine mg/g Cr 5.17 0 - 20 mg/g Cr [facility] Urine specimen (specimen) 02/22/2011 3:34 PM CDT 02/22/2011 3:39 PM CDT Loan Fitzpatrick PA-C LAB - URINE OR DERABLES [facility] * (ABNORMAL) Hemoglobin A1c (02/22/2011 3:33 PM CDT) Hemoglobin A1C 7.8(H) 4.3 - 6.0 % [facility] Blood specimen (specimen) 02/22/2011 3:33 PM CDT 02/22/2011 3:38 PM CDT Loan Fitzpatrick PA-C LAB - BLOOD OR DERABLES [facility] * (ABNORMAL) Comprehensive metabolic panel (02/22/2011 3:33 PM CDT) Sodium 140 133 - 144 mmol/L [facility] Potassium 3.9 3.4 - 5.3 mmol/L [facility] Chloride 102 94 - 109 mmol/L [facility] Carbon Dioxide 27 20 - 32 mmol/L [facility] Anion Gap 10 6 - 17 mmol/L [facility] Glucose 182(H) 60 - 99 mg/dL [facility] Urea Nitrogen 11 5 - 24 mg/dL [facility] Creatinine 0.99 0.52 - 1.04 mg/dL [facility] GFR Estimate 62 >60 mL/min/1.7 m2 [facility] GFR Estimate If Black 74 >60 mL/min/1.7 m2 [facility] Calcium 9.6 8.5 - 10.4 mg/dL [facility] Bilirubin Total 0.4 0.2 - 1.3 mg/dL [facility] Albumin 4.4 3.9 - 5.1 g/dL [facility] Comment:Reference range everett ged on 02/27/2008. Protein Total 7.6 6.8 - 8.8 g/dL [facility] Comment:As of 07, refer ence range reflects plasma specimen type. Alkaline Phosphatase 93 40 - 150 U/L [facility] ALT 18 0 - 50 U/L [facility] AST 23 0 - 45 U/L [facility] Blood specimen (specimen) 02/22/2011 3:33 PM CDT 02/22/2011 3:38 PM CDT Loan Fitzpatrick PA-C LAB - BLOOD OR DERABLES [facility] * (ABNORMAL) Lipid panel (07/24/2009) Cholesterol 207(A) 115 - 199 mg/dL Triglycerides 78 mg/dL HDL Cholesterol 95 mg/dL LDL Cholesterol Calculated 96 mg/dL VLDL-Cholesterol ng/dL Cholesterol/HDL Ratio Blood specimen (specimen) 07/24/2009 Julia Salter NP LAB - BLOOD ORDERABL ES from Last 3 Months or Most Recently Relevant to Health Maintenance Care Teams Veneer Matcher Relationship Specialty Start Date End Date [facility] [address] [place] [address] PCP - General 11/02/22
--- OUTSIDE RECORDS SUMMARY | 2023-11-11 08:28 | XMS_ITS | Clinical Summary ---
Author Organization [facility] Address [address] [place] [address] Care Team Providers Care Synthetic Cloth Binding Cutter Name Role Phone Daniel Zelaya MD Primary Care Provider [phone] Source Comments You are receiving this document as you are listed as the primary care provider,follow-up provider, or the patient has been referred to you for consultation.This is in compliance with the Medicare andWhite Hospitalcaid EHR Incentive Program,which states Providers who transition their patient to another setting of careor provider of care or refers their patient to another provider of care shouldprovide summary care record for each transition of care or referral. [facility] [employer] [employer] Allergies Active Allergy Reactions Criticality Noted Date Comments Sulfa Antibiotics Other, see comments,Hives High 08/15/2013 Itchy, difficult breathing Sulfamethoxazole-Trime thoprim Hives High 10/12/2013 Duoderm Hydroactive Rash 11/16/2017 If pt sprays area with benadryl or betadine prior to applying the tegaderm film pt does not get rash/pt. Medications Medication Sig Dispensed Refills Start Date End Date Status omega-3 fatty acids (AKA MAXEPA,FISH OIL) 1000 MG capsuleIndications :Type 1 diabetes mellitus (HRC),Neuropathy in diabetes (HRC) Take 2 Capsules by mouth daily. 30 Cap 11 2 Active Multiple Vitamins-Minerals (MULTIVITAMIN ADULT OR) Take 1 tablet by mouth daily (every 24 hours). 3 Active loratadine (AKA CLARITIN) 10 MG tablet Take 1 Tablet (10 mg) by mouth daily. 3 Active BIOTIN ORIndications:Hair , Skin, and Nails with Vitamin C and E Take 5,000 mg by mouth. Indications: Hair, Skin, and Nails with Vitamin C and E 3 Active insulin glargine (BASAGLAR) 100 UNIT/ML KWIKPENIndications :Insulin pump status (HRC),Encounter for insulin pump training,Type 1 diabetes mellitus with diabetic neuropathy (HRC) For use when off insulin pump. Max daily of 40 units. 15 mL 11 7 Active glucagon, rDNA, (GLUCAGEN) 1 MG injectionIndicatio ns:Uncontrolled type 1 diabetes with diabetic neuropathy,Type 1 diabetes mellitus without complication (HRC),Diabetic polyneuropathy associated with type 1 diabetes mellitus (HRC),Insulin pump status (HRC),Insulin resistance,Depress ion, unspecified depression type Inject 1 mg intramuscularly as needed (Hypoglycemia). 2 Each 3 8 Active aspirin, enteric-coated 81 MG enteric coated tablet Take 1 Tablet (81 mg) by mouth daily. Active fluticasone propionate (FLONASE) 50 MCG/ACT nasal solution Place 2 Sprays into both nostrils daily. Active Calcium-Vitamins C & D (CALCIUM/C/D OR) Active drug not in computer Hair volume Active buPROPion (WELLBUTRIN XL) 150 MG 24 hour release tablet Take 1 Tablet (150 mg) by mouth daily. Active Continuous Blood Gluc Ladler (DEXCOM G6 EDUCATION MANAGER) DEVIIndications:Ty pe 1 diabetes mellitus with diabetic neuropathy (HRC) Use once 1 Each 1 Active Magnesium 400 MG CAPS Active BD VEO INSULIN SYRINGE U/F 0.3ml 31g x 15/64Indications: Type 1 diabetes mellitus with diabetic neuropathy (HRC) 3 Active Insulin Pen Needle (INSULIN PEN NEDLES) 32G X 4 MMIndications:Type 1 diabetes mellitus with diabetic neuropathy (HRC) 3 Active insulin lispro (HUMALOG) 100 UNIT/ML pen cartridge Inject up to 55 units daily via pump 60 mL 3 3 Active Continuous Blood Gluc Sensor (DEXCOM G6 SENSOR)Indications :Type 1 diabetes mellitus with diabetic neuropathy (HRC) Use once every 10 days 9 Each 3 3 Active mupirocin (BACTROBAN) 2 % ointment Apply to affected area twice a day for 10 days. 22 g 3 Active insulin lispro (HUMALOG) 100 UNIT/ML injection vial Take 55 units daily in pump. Ok to dispense at lispro 50 mL 4 Active Continuous Blood Gluc Transmit (DEXCOM G6 TRANSMITTER)Indica tions:Type 1 diabetes mellitus with diabetic neuropathy (HRC) CHANGE ONCE EVERY 90 DAYS. 1 Each 3 4 Active estradiol (VIVELLEDOT) 0.05 MG/24HR biweekly patch APPLY 1 PATCH TOPICALLY TO THE SKIN 2 TIMES A WEEK 24 Patch 4 Active progesterone (PROMETRIUM) 100 MG capsule Take 1 Capsule (100 mg) by mouth daily. 90 Capsule 3 4 09/16/19 25 Active lisinopril (ZESTRIL) 20 MG tablet Take 1 Tablet (20 mg) by mouth daily. 90 Tablet 3 4 Active rosuvastatin (CRESTOR) 5 MG tabletIndications: Dyslipidemia (HRC) Take 0.5 Tablets (2.5 mg) by mouth daily. 45 Tablet 3 4 10/25/19 25 Active amLODIPine (NORVASC) 2.5 MG tablet Take 1 Tablet (2.5 mg) by mouth daily. 90 Tablet 3 4 10/25/19 25 Active insulin lispro (HUMALOG) 100 UNIT/ML injection vialIndications:Ty pe 1 diabetes mellitus with diabetic neuropathy (HRC) TAKE UP TO 55 UNITS DAILY 60 mL 2 4 Active rosuvastatin (CRESTOR) 10 MG tabletIndications: Dyslipidemia (HRC) Take 1 Tablet (10 mg) by mouth daily at bedtime. 90 Tablet 3 3 10/25/19 24 Discontinu ed(*Med change OR same med OR reorder, new dose/direc tions) HUMALOG 100 UNIT/ML injection vialIndications:Ty pe 1 diabetes mellitus with diabetic neuropathy (HRC) TAKE UP TO 55 UNITS DAILY 60 mL 2 4 11/04/19 24 Discontinu ed(*Med change OR same med OR reorder, new dose/direc tions) Active Problems Problem Noted Date Diagnosed Date Trigger ring finger of right hand 02/22/2023 Trigger ring finger of left hand 02/22/2023 Charcot's joint arthropathy in type 1 diabetes m ellitus 11/09/2022 Overview: Managed by Podiatry Dr. Barriga. 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 Uses insulin pump. Insulin pump status 02/16/2012 Encounter for long-term (current) use of insulin 02/16/2012 Type 1 diabetes mellitus with neurological manif estations 02/11/2012 Overview: Managed by Endocrinology. Uses insulin pump. Diabetic polyneuropathy 02/11/2012 Exercise induced bronchospasm 06/15/2006 Genital herpes 06/15/2006 Overview: Herpes, Genital Major depressive disorder, single episode, unspe cified Resolved Problems Problem Noted Date Diagnosed Date Resolved Date Thyrotoxicosis 03/07/2014 05/06/2021 Overview: Epic Eating disorder 04/26/2023 Overview: This problem was marked as resolved by a user in a SmartForm. Encounters Date Type Department Care Team Description 11/08/2023 E-Visit [facility] [address] Family Medicine [address] [place] [address] Dnaiel Zelaya MD 11/07/2023 Telephone [facility] [address] [facility] [id number] [place] [phone] Daniel Zelaya MD PRE-OP EXAM 11/04/2023 Telephone [facility] 3800 Endocrinology [address] [facility] [place] [address] Dontrell Chamberlain MBBS Pharmacy (HUMALOG 100 UNIT/ML injection vial) 11/03/2023 2:00 PM CDT Pre-Op Visit [address] [address] Daniel Zelaya MD Preop examination (Primary Dx); Polyp of colon, unspecified part of colon, unspecified type; Dyslipidemia (HRC); Essential hypertension (HRC); Charcot's joint arthropathy in type 1 diabetes mellitus (HRC); Type 1 diabetes mellitus with diabetic polyneuropathy (HRC); Depression, recurrent (HRC) 10/27/2023 Notes/Orders [address] [address] Daniel Zelaya MD Type 1 diabetes mellitus without complication (HRC) (Primary Dx) 10/25/2023 3:50 PM CDT Lab Visit [facility] [address] [place] [address] Fatigue, unspecified type; Polyarthralgia; Myalgia; Anemia, unspecified type; Type 1 diabetes mellitus without complication (HRC) 10/25/2023 2:30 PM CDT Initial Consult [facility] [address] Cardiology [address] [place] [address] Maximiliano Stevens MD Encounter for consultation (Primary Dx); Dyslipidemia (HRC); Hypertension, unspecified type (HRC) 10/25/2023 Telephone [facility] [address] [facility] [address] [place] [address] Suraj Barriga DPM Orders Needed 10/12/2023 2:15 PM CDT Telemedicine [facility] [place] [address] [place] [id number] Nicolasa Schultz RN, [facility] Type 1 diabetes mellitus without complication (HRC) (Primary Dx) 10/12/2023 E-Visit [facility] [place] [address] [place] [address] Mychart, Generic Provider 10/06/2023 8:20 AM CDT Ancillary Procedure [facility] [address] [place] [address] 09/26/2023 [facility] [address] [place] [address] Mychart, Generic Provider 09/22/2023 4:30 PM CDT Office Visit [facility] [address] [facility] Medicine [address] [place] [phone] Daniel Zelaya MD Fatigue, unspecified type (Primary Dx); Screening for colon cancer; Polyarthralgia; Myalgia; Arterial calcification; Anemia, unspecified type 09/16/2023 3:30 PM CDT Office Visit [facility] [employer] [facility] [address] [facility], [address] [place] [phone] Sandra Martel APRN, HUMAN SERVICES CARE SPECIALIST Post-menopause on HRT (hormone replacement therapy) (Primary Dx); Screening for malignant neoplasm of cervix; Special screening examination for human papillomavirus (HPV); Visit for screening mammogram; Breast screening; Special screening for malignant neoplasms, colon 08/31/2023 E-Visit [facility] [address] [place] [address] Mychart, Generic Provider 08/30/2023 2:15 PM CDT Telemedicine [facility] [place] [address] [facility] [place] [address] Shyann Newell RDN, LD, CDCES Type 1 diabetes mellitus with diabetic neuropathy (HRC) (Primary Dx) 08/30/2023 E-Visit [facility] [place] [address] [facility] [place] [address] Mychart, Generic Provider 08/20/2023 Refill [facility] [employer] [facility] [address] [facility], [address] [place] [phone] Sandra Martel, BYPRODUCTS MAKER, HUMAN SERVICES CARE SPECIALIST Refill (estradiol (VIVELLEDOT) 0.05 MG/24HR biweekly patch [Pharmacy Med Name: ESTRADIOL 0.05MG PATCH (TWICE WK)]) 08/15/2023 9:00 AM CDT Office Visit [facility] [address] [facility] [address] [place] [address] Suraj Barriga, DPM Charcot's joint of foot in type 1 diabetes mellitus (HRC) (Primary Dx); Type 1 diabetes mellitus with peripheral autonomic neuropathy (HRC); Pre-ulcerative calluses 08/11/2023 Refill [facility] 3800 Endocrinology [address] [facility] [place] [address] Dontrell Chamberlain MBBS Refill (Continuous Blood Gluc Transmit (DEXCOM G6 TRANSMITTER) [Pharmacy Med Name: DEXCOM G6 TRANSMITTER]) from Last 3 Months Immunizations Name Administration Dates Next Due Flu Vac (3+ yrs) 04/05/2013 Flu Vac Preserv Free (3+yrs) 04/05/2019,05/20/20 11,04/20/2010 Fluzone Qiv Multidose Vial 0 .25 (6-35 Mos) 03/11/2022,03/18/2021,03/19/2020,2017,03/30/2017,03/24/2016,03/26/2015 [id number] 07/09/2009 Influenza IIV4 (Quadrivalent ) 0.5mL ([id number]) 03/20/2014 Moderna Bivalent 12+ 02/18/2022 Moderna Monovalent 12+ 04/15/2021,07/31/2020, PCV20 (Mojldjt77) 11/08/2022 PPSV23 (Pneumovax) 08/18/2020 Pneumococcal 7, PED 08/14/1997 Td 08/05/1997 Td, Preservative Free 06/21/2017 Tdap 11/02/2007 Zoster RZV (Shingrix) 05/01/2021,01/19/2021 Social History Tobacco Use Types Packs/Day Years Used Date Smoking Tobacco: Former Cigarettes 0 06/06/1992 - 06/06/2007 Smokeless Tobacco: Never Tobacco Cessation:Counseling Given: Not Answered Alcohol Use Standard Drinks/Week Comments Yes 2 [...] Sex Assigned at Female 05/05/2021 8:28 PM PERFORMANCE IMPROVEMENT SPECIALIST Gender Identity Female 05/05/2021 8:28 PM PERFORMANCE IMPROVEMENT SPECIALIST Sexual Orientation Straight 05/05/2021 8: 28 PM PERFORMANCE IMPROVEMENT SPECIALIST Last Filed Vital Signs Vital Sign Reading Time Taken Comments Blood Pressure 134/80 11/03/2023 2:03 PM CDT Pulse 81 11/03/2023 2:03 PM CDT Temperature 36.7 ??C (98 ??F) 02/04/2023 2:05 PM CDT Respiratory Rate 16 11/03/2023 2:03 PM CDT Oxygen Saturation 100% 02/04/2023 2:05 PM CDT Inhaled Oxygen Concentration - - Weight 69.4 kg (153 lb) 11/03/2023 2:03 PM CDT Height 161.9 cm (5' 3.75) 10/25/2023 2:34 PM CD T Body Mass Index 26.47 10/25/2023 2:34 PM CDT Plan of Treatment Upcoming Encounters Date Type Department Care Team (Late st Contact Info) Description 11/22/2023 3:00 PM CDT Appointment [facility] [address] [place] [address] Demetris Alvarez Scheduled Procedures Name Priority Associated Diagnoses Date/Ti me RELEASE TRIGGER FINGER Trigger ring finger of right hand Trigger ring finger of left hand Health Maintenance Due Date Last Done Comments Hep C Screening (Preventive Services) 1970 MTM Targeted 1968 HIV Screening (Preventive Services) 1984 HepB (1) 11/29/1987 COVID-19 Vaccine ( season) 2023 02/18/2022, 04/15/2021, 07/31/2020, Additional history exists Diabetes: Foot Exam 11/04/2023 11/03/2022 (Completed ) Colonoscopy 11/05/2023 11/04/2018 (Completed) Adult Preventive Visit 11/09/2023 11/08/2022 Diabetes: HGBA1C 01/25/2024 10/25/2023, 11/2023, 01/04/2023, Additional history exists Diabetes: Urine Microalbumin 07/12/2024 07/12/2023, 06/22/2022, 07/21/2021, Additional history exists Diabetes: Eye Exam 07/13/2024 07/13/2023, 0 07/13/2023, 09/20/2022, Additional history exists Mammogram 10/05/2024 10/06/2023, 0301/2023, 06/21/2006 Diabetes: Creatinine 10/24/2024 10/25/2023, 07/12/2023, 06/22/2022, Additional history exists DTaP/Tdap/Td (3 - Tdap) 06/21/2027 06/21/19 18, 11/02/2007, 08/05/1997 Diabetes: Lipid Panel 07/12/2028 07/12/2023 , 06/22/2022, 10/18/2019, Additional history exists Cervical Cancer Screening 09/15/20282023, 10/09/2018 (Completed) Zoster/Shingles Completed 05/01/2021, 01/19/2021 Pneumococcal Completed 11/08/2022, 08/04, 08/14/1997 Influenza Completed 03/17/2023, 11/2021, 03/18/2021, Additional history exists HepA Aged Out No longer eligi ble based on patient's age to complete this topic Hib Aged Out No longer eligi ble based on patient's age to complete this topic IPV (Polio) Aged Out No longer eligi ble based on patient's age to complete this topic [email or web address] Aged Out No longer eligi ble based on patient's age to complete this topic Procedures Procedure Name Priority Date/Time Associated Diagnosis Comments HGB A1C Routine 10/25/2023 4:04 PM CDT Type 1 diabetes mellitus without complication (HRC) CK, TOTAL Routine 10/25/2023 4:04 PM CDT Myalgia FERRITIN Routine 10/25/2023 4:04 PM CDT Anemia, unspecified type IRON PROFILE (IRON,TIBC,%SAT.(CA LC)) Routine 10/25/2023 4:04 PM CDT Anemia, unspecified type COMPLETE BLOOD COUNT-NO DIFF Routine 10/25/2023 4:04 PM CDT Anemia, unspecified type C-REACTIVE PROTEIN Routine 10/25/2023 4: 04 PM CDT Polyarthralgia Myalgia JOSÉ WITH REFLEX TO JOSÉ PROFILE 2 Routine 10/25/2023 4:04 PM CDT Polyarthralgia Myalgia TESTOSTERONE, FEMALE OR CHILDREN Routine 10/25/2023 4:04 PM CDT Fatigue, unspecified type BASIC METABOLIC PANEL Routine 10/25/2023 4:04 PM CDT Fatigue, unspecified type ECG 12 LEAD OUTPATIENT Routine 10/25/2023 2:32 PM CDT Encounter for consultation MM MAMMOGRAM SCREENING BILAT W 3D MARTINEZ W CAD Routine 10/06/2023 8:31 AM CDT HPV WITH 16 18 GENOTYPING, CERVICAL/ENDOCERVIC AL Routine 09/16/2023 3:54 PM CDT Special screening examination for human papillomavirus (HPV) PAP TEST Routine 09/16/2023 3:54 PM CDT Screening for malignant neoplasm of cervix ALBUMIN/CREAT RATIO Routine 07/12/2023 4 :05 PM PERFORMANCE IMPROVEMENT SPECIALIST Type 1 diabetes mellitus with diabetic neuropathy (HRC) LIPID PANEL & DIRECT LDL (IF NEEDED) Routine 07/12/2023 3:48 PM PERFORMANCE IMPROVEMENT SPECIALIST Type 1 diabetes mellitus with diabetic neuropathy (HRC) from Last 3 Months or Most Recently Relevant to Health Maintenance Results * Testosterone, female or children (10/25/2023 4:04 PM CDT) Testosterone Female or Children 15 9 - 55 ng/dL 10/29/2023 3:38 PM CDT [facility] Comment: REFERENCE INTERVAL: Testosterone by Lithographers Printer Females Premenopausal ??9-55 ng/dL Postmenopausal 5-32 ng/dL INTERPRETIVE INFORMATION: Testosterone by Lithographers Printer Free or bioavailable testosterone measurements may provide supportive information. For individuals on testosterone-suppressing hormone therapies (e.g., antiandrogens or estrogens), refer to cisgender female reference intervals. For a complete set of all established reference intervals, refer to ltd.[employer]/Tests/Pub/[id number]. This test was developed and its performance characteristics determined by [facility]. It has not been cleared or approved by the [place] Food and Drug Administration. This test was performed in a CLIA certified laboratory and is intended for clinical purposes. Performed By: [facility] [address] [place] [address] Gas Reverser: Hesham Ruff MD, PhD CLIA Number: [id number] Blood Venipuncture / Unknown 10/25/2023 4:04 PM CDT 10/25/2023 4:07 PM CDT Daniel Zelaya MD LAB_1 [facility] [address] [place] [address] [place] [phone] * JOSÉ with Reflex to JOSÉ Profile 2 (10/25/2023 4:04 PM CDT) JOSÉ Interpretation Negative Negative 2023 11:45 AM CDT [facility] Blood Venipuncture / Unknown 10/25/2023 4:04 PM CDT 10/25/2023 4:07 PM CDT Daniel Zelaya MD LAB_1 [facility] [address] * (ABNORMAL) Basic Metabolic Panel (10/25/2023 4:04 PM CDT) Pathologist [facility] Sodium 139 136 - 145 mmol/L 10/25/2023 5:11 PM [facility] Potassium 4.4 3.5 - 5.1 mmol/L 10/25/2023 5:11 PM [facility] Chloride 104 98 - 109 mmol/L 10/25/2023 5:11 PM [facility] CO2 25 20 - 29 mmol/L 10/25/2023 5:11 PM [facility] Anion Gap 10 6 - 16 mmol/L 10/25/2023 5:11 PM [facility] Calcium 9.8 8.4 - 10.4 mg/dL 10/25/2023 5:11 PM [facility] BUN 13 7 - 26 mg/dL 10/25/2023 5:11 PM [facility] Creatinine 0.95 0.55 - 1.02 mg/dL 10/25/2023 5:11 PM [facility] Glucose 149(H) 70 - 100 mg/dL 10/25/2023 5:11 PM [facility] Comment:The given reference range is for the fasting state. Non-fasting reference range for glucose is 70 - 180 mg/dL. GFR, Estimated >60 >60 mL/min/1.7 3m2 10/25/2023 5:11 PM [facility] Hours Fasting 9.0 8 - 12 Hours 10/25/2023 5:11 PM [facility] Blood Venipuncture / Unknown 10/25/2023 4:04 PM CDT 10/25/2023 4:07 PM CDT Daniel Zelaya MD LAB_1 [facility] [address] [place] [address] * (ABNORMAL) Complete Blood Count-No Diff (10/25/2023 4:04 PM CDT) [facility] WBC 5.0 3.5 - 10.5 x10(9)/L 10/25/2023 4:09 PM CDT [facility] RBC 3.70(L) 3.90 - 5.03 x10(12)/L 10/25/2023 4:09 PM T [facility] Hemoglobin 11.5(L) 12.0 - 15.5 g/dL 10/25/2023 4:09 PM T [facility] HCT 34.7(L) 34.9 - 44.5 % 10/25/2023 4:09 PM T [facility] MCV 93.8 80.0 - 100.0 fL 10/25/2023 4:09 PM T [facility] MCH 31.1 27.6 - 33.3 pg 10/25/2023 4:09 PM T [facility] MCHC 33.1 31.5 - 35.2 g/dL 10/25/2023 4:09 PM T [facility] RDW 12.9 11.9 - 15.5 % 10/25/2023 4:09 PM T [facility] Platelets 237 150 - 450 x10(9)/L 10/25/2023 4:09 PM T [facility] Automated NRBC 0 <=0 /100 WBC 10/25/2023 4:09 PM T [facility] Blood Venipuncture / Unknown 10/25/2023 4:04 PM CDT 10/25/2023 4:07 PM CDT Daniel Zelaya MD LAB_1 Performing Organization Address [facility]/ZIP Co de Phone Number [facility] [address] [place] [address] * Ferritin (10/25/2023 4:04 PM CDT) [facility] Ferritin 64 9 - 204 ng/mL 10/25/2023 8:04 PM CDT [facility] Blood Venipuncture / Unknown 10/25/2023 4:04 PM CDT 10/25/2023 4:07 PM CDT Daniel Zelaya MD LAB_1 Performing Organization Address [facility]/ZIP Co de Phone Number [facility] [address] [place], [place] [id number] [place] [address] * C-Reactive Protein (10/25/2023 4:04 PM CDT) [facility] C-Reactive Protein <0.5 0.0 - 0.5 mg/dL 10/25/2023 5:11 PM CDT [facility] Blood Venipuncture / Unknown 10/25/2023 4:04 PM CDT 10/25/2023 4:07 PM CDT Daniel Zelaya MD LAB_1 Performing Organization Address [facility] de Phone Number [facility] [address] [place] [address] * (ABNORMAL) Hgb A1C (10/25/2023 4:04 PM CDT) [facility] Hemoglobin A1C (Rapid) 6.4(H) <=5.6 % 10/27/2023 12:07 PM CDT [facility] Estimated Average Glucose (Calc) 137 < 117 mg/dL 10/27/2023 12:07 PM T [facility] Comment:Estimated average gl ucose (eAG) converts A1c into glucose units (mg/dL) and estimates average glucose over the past approximately 3 months. The eAG reference interval (<117 mg/dL) corresponds to an A1c of <5.7%. Blood Venipuncture / Unknown 10/25/2023 4:04 PM CDT 10/25/2023 4:07 PM CDT Narrative [facility] - 10/27/2023 12:07 PM CDT For [...] for further direction. Daniel Zelaya MD LAB_1 Performing Organization Address [facility] de Phone Number [facility] [address] [place] [address] * Iron Profile (Iron,TIBC,%Sat.(Calc)) (10/25/2023 4:04 PM CDT) Pathologist [facility] Iron 105 50 - 170 mcg/dL 10/25/2023 7:53 PM CDT [facility] Transferrin 246 180 - 382 mg/dL 10/25/2023 7:53 PM CDT [facility] TIBC, Calculated 308 240 - 450 mcg/dL 10/25/2023 7:53 PM CDT [facility] % Saturation, Calculated 34 10 - 50 % 10/25/2023 7:53 PM CDT [facility] Blood Venipuncture / Unknown 10/25/2023 4:04 PM CDT 10/25/2023 4:07 PM CDT Daniel Zelaya MD LAB_1 Performing Organization Address [facility] de Phone Number [facility] [address] [place] [address] * CK (10/25/2023 4:04 PM CDT) CK, Total 79 29 - 168 U/L 10/25/2023 5:11 PM CDT [facility] Blood Venipuncture / Unknown 10/25/2023 4:04 PM CDT 10/25/2023 4:07 PM CDT Daniel Zelaya MD LAB_1 Performing Organization Address [facility] Co de Phone Number [facility] [address] [place] [address] * ECG 12 Lead Outpatient (10/25/2023 2:32 PM CDT) Ventricular Rate 83 BPM [facility] Atrial Rate 83 BPM [facility] P-R Interval 170 ms [facility] QRS Duration 82 ms [facility] QT 374 ms [facility] QTc 439 ms [facility]USE [facility] P [place] 80 degrees MUSE GHP R [place] 81 degrees MUSE GHP T [place] 73 degrees MUSE GHP 10/25/2023 2:32 PM CDT Narrative [facility] - 10/25/2023 3:31 PM CDT Sinus rhythm Biatrial enlargement Abnormal ECG When compared with ECG of 19-OCT-2012 15:39, No significant change was found Confirmed by Davonte Lucas ([id number]) on 10/25/2023 3:31:15 PM Procedure Note Davonte Lucas MD - 10/25/2023 Sinus rhythm Biatrial enlargement Abnormal ECG When compared with ECG of 19-OCT-2012 15:39, No significant change was found Confirmed by Davonte Lucas ([id number]) on 10/25/2023 3:31:15 PM Maximiliano Stevens MD PN ECG ORDERABLES Performing Organization Address City/State/[facility] Co de Phone Number [facility] [address] [place] [address] * MM Mammogram Screening Bilat W 3D Martinez W CAD (10/06/2023 8:31 AM CDT) Anatomical Region Laterality Modality Breast Bilateral Mammography Impressions 10/06/2023 3:16 PM CDT : ACR BI-RADS Category 1: Negative RECOMMENDATION: Follow Up Imaging in 12 months - Bilateral The results and recommendations of this examination will be communicated to the patient. Narrative 10/06/2023 3:16 PM CDT MM MAMMOGRAM SCREENING BILAT W 3D MARTINEZ W CAD performed on 10/06/23 Compared to: 08/11/2022 MM Mammogram Screening Bilat W 3D Martinez W CAD ?? FINDINGS: Bilateral screening mammogram was performed with the assistance of Computer-Aided Detection and breast tomosynthesis. The breasts are heterogeneously dense, which may obscure small masses. There is no radiographic evidence of malignancy. ?? Sandra Mendez Gave BYPRODUCTS MAKER, HUMAN SERVICES CARE SPECIALIST RAD MERVIN * PAP Test (09/16/2023 3:54 PM CDT) Case Report Pap ? Case: [id number] ? Authorizing Provider: ??Gave, Sandra Mendez, JAYLA, ?? Collected: ? 09/16/2023 1554 ? HUMAN SERVICES CARE SPECIALIST ? Ordering Location: ? [facility] ? Received: ?09/16/2023 1626 ? Services-MEDICAL [employer]PS OFFICER ? First Screen: ?Kelsey, Kenzie Peterson, CT (ASCP) ? Specimen: ?Pap Test, Routine, Cervix/Endocervix ? 10/13/2023 8:01 AM CDT [facility] Pap Specimen Adequacy Satisfactory for evaluation, endocervical/lew sformation zone component absent. 10/13/2023 8:01 AM CDT [facility] Pap Interpretation (NILM) Negative for intraepithelial lesion or malignancy. 10/13/2023 8:01 AM CDT [facility] Pap Disclaimer The Pap test is a screening test to aid in the detection of cervical and vaginal cancers and their precursor lesions. It is not a diagnostic procedure and should not be used as the sole means of detecting malignancy. Both false-positive and false-negative results may occur. 10/13/2023 8:01 AM CDT [facility] Gross Description The specimen is received in SurePath fixative and properly labeled. 1 Pap-stained SurePath slide is prepared. 10/13/2023 8:01 AM CDT [facility] Embedded Images 8:01 AM CDT [facility] Other Specimen Type ENTIRE ENDOCERVIX / Unknown 09/16/2023 3:54 PM CDT 09/16/2023 4:26 PM CDT Comment:LMP: Patient's last menstrual period was 04/21/2022 (approximate). Sandra Martel APRN, HUMAN SERVICES CARE SPECIALIST LAB PATHOLOGY [facility] [address] [place] [address], [facility] * HPV with 16 18 Genotyping (09/16/2023 3:54 PM CDT) HPV High Risk Type 16 PCR Not Detected Not detected 10/13/2023 8:01 AM CDT [facility] HPV High Risk Type 18 PCR Not Detected Not Detected 10/13/2023 8:01 AM T [facility] HPV High Risk Other Than 16/18 Not Detected Not detected 10/13/2023 8:01 AM T [facility] Cervical Broom ENTIRE ENDOCERVIX / Unknown 09/16/2023 3:54 PM CDT 09/16/2023 4:26 PM CDT [facility] - 10/13/2023 8:01 AM CDT The Cameron HPV test is a qualitative in vitro test for the detection of Human Papillomavirus in SurePath patient specimens. The test utilizes amplification of target DNA by Polymerase Chain Reaction (PCR) and nucleic acid hybridization for the detection of 14 high-risk (HR) HPV types. The assay tests for high risk types (16, 18, 31, 33, 35, 39, 45, 51, 52, 56, 58, 59, 66, and 68). Sandra Martel APRN, CNP LAB_1 Performing Organization Address [facility]/ZIP Co de Phone Number [address] [address], [facility] * (ABNORMAL) Albumin/Creatinine Ratio,Random Urine (07/12/2023 4:05 PM PERFORMANCE IMPROVEMENT SPECIALIST) Albumin/Creati nine Ratio, Urine, Random 38(H) <30 mg/g 07/12/2023 5:[address] [facility] Albumin, Urine, Random 20.1 mg/L 07/12/2023 5:[address] [facility] Creatinine, Urine, Random 53 >20 mg/dL mg/dL 07/12/2023 5:[address] [facility] Urine Non-blood Collection / Unknown 07/12/2023 4:05 PM PERFORMANCE IMPROVEMENT SPECIALIST 07/12/2023 4:05 PM PERFORMANCE IMPROVEMENT SPECIALIST Dontrell GRAY LAB_1 Performing Organization Address [facility]/ZIP Co de Phone Number [facility] [address] [place] [address], [facility] * (ABNORMAL) Lipid Panel and Direct LDL(If Needed) (07/12/2023 3:48 PM PERFORMANCE IMPROVEMENT SPECIALIST) Cholesterol 208(H) 0 - 199 mg/dL 07/12/2023 6:[address] [facility] Triglyceride 54 <=149 mg/dL 07/12/2023 6:[address] [facility] HDL Cholesterol 112 >=40 mg/dL 6:[address] [facility] LDL, Calculated 85 <130 mg/dL 6:[address] [facility] Non HDL Chol, Calculated 96 <=159 mg/dL 07/12/2023 6:[address] [facility] Cholesterol/HDL Ratio 1.9 <=5.0 07/12/2023 6:[address] [facility] Hours Fasting 13.0 8 - 12 Hours 07/12/2023 6:[address] [facility] Blood Venipuncture / Unknown 07/12/2023 3:48 PM PERFORMANCE IMPROVEMENT SPECIALIST 07/12/2023 4:05 PM [facility] Dontrell Chamberlain [facility] [address] [place] [address] from Last 3 Months or Most Recently Relevant to Health Maintenance Care Teams Synthetic Cloth Binding Cutter Relationship Specialty [place] [address] [place] [address] PCP - General Family Practice 08/23/22
--- OUTSIDE RECORDS SUMMARY | 2023-11-11 08:28 | XMS_ITS | Encounter Summary ---
Author Organization [facility] Address [address], [place] [address] Care Team Providers Care Cab Starter Name Role Phone Daniel Zelaya MD Primary Care Provider [phone] Reason for Visit * Reason Comments CONSULT * Consult/Transfer Care (Routine) - New Request Specialty Diagnoses / Procedures Referred By Kristie white Referred To Contact Cardiology Diagnoses Myalgia [place] [address] [place] [address] Referral ID Status Reason Start Date Expiration Date V isits Requested Visits Authorized [id number] New Request 09/22/2023 12/21/2024 1 1 Encounter Details Date Type Department Care Team (Late st Contact Info) Description 10/25/2023 2:30 PM CDT Initial Consult [facility] [address] Cardiology [address] [place] [address] Maximiliano Stevens MD [address] [facility] [address] [place], [place] [address] Encounter for consultation (Primary Dx); Dyslipidemia (HRC); Hypertension, unspecified type (HRC) Social History Tobacco Use Types Packs/Day [...] Sex Assigned at Female 05/05/2021 8:28 PM LUGGER Gender Identity Female 05/05/2021 8:28 PM LUGGER Sexual Orientation Straight 05/05/2021 8: 28 PM LUGGER documented as of this encounter Last Filed Vital Signs Vital Sign Reading Time Taken Comments Blood Pressure 142/72 10/25/2023 2:34 PM CDT Pulse 83 10/25/2023 2:34 PM CDT Temperature - - Respiratory Rate - - Oxygen Saturation - - Inhaled Oxygen Concentration - - Weight 67.5 kg (148 lb 14.4 oz) 10/25/2023 2:34 PM CDT Height 161.9 cm (5' 3.75) 10/25/2023 2:34 PM CD T Body Mass Index 25.76 10/25/2023 2:34 PM CDT documented in this encounter Progress Notes * Maximiliano Stevens MD - 10/25/2023 2:30 PM CDT Images from the original note were not included. Cardiology Clinic Note Lizbeth Pretty [id number] 10/25/2023 [place]: [place] [address] [facility] [address] Dear Daniel Zelaya MD, I had the pleasure of seeing Lizbeth Pretty at the [facility] in [place] today. Problem List Dyslipidemia HTN Type I DM SUBJECTIVE: Lizbeth Pretty is a 52 y.o. female who is being seen in consultation today. She has a history of type 1 diabetes, hypertension, and dyslipidemia. She was also been told that she was vascular calcifications that were noted on both hand and foot x-ray in the past. She has been having some problems tolerating statin therapy. She has been on atorvastatin but then developed symptoms of aching in the shoulders and a brain fog. She stopped atorvastatin and felt better. She was then started on rosuvastatin which initially was well tolerated. However, she then had the same symptoms and stopped this about a month ago. She has been feeling better since then. She still has some fatigue that has not changed. She has not had any chest discomfort or shortness of breath. She was wondering if she needs to be tested for any heart artery blockages. She has not had orthopnea, PND, or lower extremity edema. About a year ago she was in [place] and had DKA. When she checks her blood pressures at home have been in the 140s over 70s. About a month ago her lisinopril was increased to 20 mg daily. Ho christel, she thinks that this has caused her blood pressure to increase. Medications: Current Outpatient Medications Medication Instructions aspirin, enteric-coated 81 mg, Oral, DAILY BD VEO INSULIN SYRINGE U/F 0.3ml 31g x 15/64 BIOTIN OR 5,000 mg, Oral buPROPion (WELLBUTRIN XL) 150 mg, Oral, DAILY Calcium-Vitamins C & D (CALCIUM/C/D OR) No dose, route, or frequency recorded. Continuous Blood Gluc Structurer (DEXCOM G6 CAREER SERVICES DIRECTOR) BEL[place] Use once Continuous Blood Gluc Sensor [...] (PROMETRIUM) 100 mg, Oral, DAILY rosuvastatin (CRESTOR) 10 mg, Oral, HS OBJECTIVE: BP (!) 142/72 (BP Location: Left Arm, BP Cuff Size: Regular) Pulse 83 Ht 5' 3.75 (161.9 cm) Wt 148 lb 14.4 oz (65524 g) LMP 04/21/2022 (Approximate) BMI 25.76 kg/m?? Gen: alert, in NAD Neck: CVP normal, no bruit COR: RRR with a 1/6 systolic murmur at the lower left sternal border Lungs: CTAB Extr: no edema, warm Labs: Lab Results Component Value Date Creatinine 0.82 07/12/2023 Glucose 126 (H) 07/12/2023 Bedside Blood Glucose Test 144 10/19/2012 CO2 26 07/12/2023 Chloride 105 07/12/2023 Potassium 4.1 07/12/2023 Sodium 139 07/12/2023 BUN 14 07/12/2023 Calcium 9.9 07/12/2023 GFR, Estimated >60 07/12/2023 Lab Results Component Value Date WBC 4.3 07/12/2023 RBC 3.65 (L) 07/12/2023 Hemoglobin 11.2 (L) 07/12/2023 HCT 34.5 (L) 07/12/2023 MCV 94.5 07/12/2023 RDW 13.6 07/12/2023 Platelets 256 07/12/2023 Lab Results Component Value Date Cholesterol 208 (H) 07/12/2023 HDL Cholesterol 112 07/12/2023 Triglyceride 54 07/12/2023 LDL, Calculated 85 07/12/2023 EKG: Normal sinus rhythm with a rate of 83 beats per minute, NC depression in 2 3 and AVF, no acuteST segment changes. A/P: Dyslipidemia. She appears to have had some side effects from her statin therapy. I let her know that because of her risk factors as well as probable atherosclerosis statin therapy with goal LDL less than 70 would be recommended. We did talk about other strategies disease for trying to have her tolerate statins. After our discussion we decided to start her on rosuvastatin 2.5 mg once a week. This can be titrated upwards every month as she tolerates. I have asked her to call me in about a month and if she was doing well we can increase the dose to 5 mg once a week. On subsequent calls we can increase the rosuvastatin by 1 dose a week until she is on 5 mg a day. It can be titrated up further as she tolerates as well. Once she was at her maximally tolerated dose for 2 months we can recheck a lipid panel. If she was not at goal (LDL less than 70), then we can look into a PCSK9 inhibitor. Atherosclerosis. I did review her hand x-ray from last year and she indeed does have calcification of her radial artery. I would not be surprised if she has coronary artery calcifications as well. Weare going to treat her as she does have atherosclerosis as above. I let her know that the cornerstone of treatment we will be risk factor modification as well as medications. She was already on aspirin therapy. We are going to try and get her on as high a dose of a statin as possible. Hypertension. Her blood pressure is elevated in clinic. It seems to be elevated also at home. We talked about additional antihypertensive therapy. I gave her a prescription for amlodipine 2.5 mg daily. She wanted to check her blood pressure for another week or so and if she was not at goal then shewill start the amlodipine. Goal blood pressure would be under 130/80. I have asked her to call me in a month this let me know how she was doing on the once weekly rosuvastatin. I did not make any scheduled follow up at this point. We will do some of her medication titration over the phone. Thank you for allowing us to participate in the care of your patient, Lizbeth Pretty. If you have any questions regarding these recommendations, please feel free to contact me. Maximiliano Stevens MD Department of Cardiology [facility] [place] Allergies Allergen Reactions Sulfa Antibiotics Other, see comments and Hives Itchy, difficult breathing Sulfamethoxazole-Trimethoprim Hives Tegaderm Hydrocolloid [Duoderm Hydroactive] Rash If pt sprays area with benadryl or betadine prior to applying the tegaderm film pt does not get rash/pt. Patient Active Problem List Diagnosis Date Noted Major depressive disorder, single episode, unspecified (HRC) Type 2 diabetes mellitus without complications (HR) Trigger ring finger of right hand 02/22/2023 Trigger ring finger of left hand 02/22/2023 Charcot's joint arthropathy in type 1 diabetes mellitus ([facility]) 11/09/2022 Overview Note: Managed by Podiatry Dr. Barriga. 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 Uses insulin pump. 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 Uses insulin pump. Diabetic polyneuropathy ([facility]) 02/11/2012 Exercise induced bronchospasm ([facility]) 06/15/2006 Genital herpes ([facility]) 06/15/2006 Overview Note: Herpes, Genital No family history on file. Social History Socioeconomic History Marital status: Spouse name: Not on file Number of children: Not on file Years of education: Not on file Highest education level: Not on file Occupational History Not on file documented in this encounter Plan of Treatment Upcoming Encounters Date Type Department Care Team (Late st Contact Info) Description 11/22/2023 3:00 PM CDT Appointment [facility] [address] [place] [address] Demetris Alvarez Scheduled Procedures Name Priority Associated Diagnoses Date/Ti me RELEASE TRIGGER FINGER Trigger ring finger of right hand Trigger ring finger of left hand documented as of this encounter Procedures Procedure Name Priority Date/Time Associated Diagnosis Comments ECG 12 LEAD OUTPATIENT Routine 10/25/2023 2:32 PM CDT Encounter for consultation documented in this encounter Results * ECG 12 Lead Outpatient (10/25/2023 2:32 PM CDT) Ventricular Rate 83 BPM MUSE GHP Atrial Rate 83 BPM MUSE GHP P-R Interval 170 ms MUSE GHP QRS Duration 82 ms MUSE GHP QT 374 ms MUSE GHP QTc 439 ms MUSE GHP P [place] 80 degrees MUSE GHP R [place] 81 degrees MUSE GHP T [place] 73 degrees MUSE GHP 10/25/2023 2:32 PM [...] PM Maximiliano Stevens MD PN ECG ORDERABLES [facility] [address] [place] [address] documented in this encounter Visit Diagnoses Diagnosis Encounter for consultation- Primary Unspecified reason for consultation Dyslipidemia (HRC) Other and unspecified hyperlipidemia Hypertension, unspecified type (HRC) documented in this encounter Care Teams Cab Starter Relationship Specialty [place] [address] [place] [address] PCP - General Family Practice 08/23/22 documented as of this encounter
--- OUTSIDE RECORDS SUMMARY | 2023-11-11 08:28 | XMS_ITS | Encounter Summary ---
Author Organization [facility] Address [address] [place] [address] Care Team Providers Care Cognos Administrator Name Role Phone Julia Salter NP Primary Care Provider Mark [place] Primary Care Provider Unavailable Linette Wright PA-C Unavailable [phone] [facility], Raquel Azul Wyano Primary Care Pr ovider Encounter Details Date Type Department Care Team (Late st Contact Info) Description 03/12/[address] [facility] [address] [address] Roxann [place] [address] Social History Tobacco Use Types Packs/Day Years Used Date Smoking Tobacco: Former Cigarettes 0.3 20 0 06/10/1988 - 06/10/2008 Alcohol Use Standard Drinks/Week Comments Yes 0 (1 standard drink = 0.6 oz pur e alcohol) wine on the w/e Sex and Gender Information Value Date Recorded Sex Assigned at Not on file Gender Identity Not on file Sexual Orientation Not on file documented as of this encounter Plan of Treatment Not on file documented as of this encounter Visit Diagnoses Not on filedocumented in this encounter Care Teams Cognos Administrator Relationship Specialty Start Date End Date Julia Salter NP PCP - General INTERNAL MEDICINE - ENDOCRINOLOGY, DIABETES & METABOLISM 02/23/11 12/06/20 Ty Mason PCP - General Family Practice 12/07/20 [facility]01[facility]22 [facility] [address] [place] [address] PCP - General 11/02/22 Linette Wright PA-C [address] [place] [address] Assigned Neuroscience Provider 10/30/22 06/29/23 documented as of this encounter
--- OUTSIDE RECORDS SUMMARY | 2023-11-11 08:28 | XMS_ITS | Encounter Summary ---
[facility] Organization [facility] Address [address] [place] [address] Care Team Providers Care Rubber Splicer Name Role Phone Daniel Zelaya MD Primary Care Provider [phone] Reason for Visit * Reason Onset Date Comments Pharmacy 11/04/2023 HUMALOG 100 UNIT /ML injection vial Encounter Details Date Type Department Care Team (Late st Contact Info) Description 11/04/2023 Telephone [place] [id number] Endocrinology [address] [place] [address] Marco Chamberlain, MARINA [address] [place] [address] Pharmacy (HUMALOG 100 UNIT/ML injection vial) Social History Tobacco Use Types Packs/Day Years [...] Sex Assigned at Female 05/05/2021 8:28 PM SURVEY TECHNOLOGIST Gender Identity Female 05/05/2021 8:28 PM SURVEY TECHNOLOGIST Sexual Orientation Straight 05/05/2021 8: 28 PM SURVEY TECHNOLOGIST documented as of this encounter Nursing Notes * Immanuel Gotti, RN - 11/04/2023 1:13 PM CDT Renewed medication per medication refill standing order. Requested Prescriptions Signed Prescriptions Disp Refills insulin lispro (HUMALOG) 100 UNIT/ML injection vial 60 mL 2 Sig: TAKE UP TO 55 UNITS DAILY Authorizing Provider: MARCO CHAMBERLAIN Ordering User: IMMANUEL GOTTI Resent without ABAD * Renee López - 11/04/2023 11:04 AM CDT MEDICATION NOT COVERED: Pharmacy stating pts insurance does not cover HUMALOG 100 UNIT/ML injection vial . Please advise and send new rx if appropriate (current Rx reflects ABAD and substitution permitted), thank you. [facility] PH: [phone] documented in this encounter Plan of Treatment Upcoming Encounters Date Type Department Care Team (Late st Contact Info) Description 11/22/2023 3:00 PM CDT Appointment [facility] [address] [place] [address] Demetris Alvarez Scheduled Procedures Name Priority Associated Diagnoses Date/Ti me RELEASE TRIGGER FINGER Trigger ring finger of right hand Trigger ring finger of left hand documented as of this encounter Visit Diagnoses Diagnosis Type 1 diabetes mellitus with diabetic neuropathy (HRC) Type I (juvenile type) diabetes mellitus with neurological manifestations, not stated as uncontrolled documented in this encounter Care Teams Rubber Splicer Relationship Specialty [place] [address] [place] [address] PCP - General Family Practice 08/23/22 documented as of this encounter
--- OUTSIDE RECORDS SUMMARY | 2023-11-11 08:28 | XMS_ITS | Encounter Summary ---
Author Organization [facility] Address [address], [place] [address] Care Team Providers Care Housekeeping Staff Name Role Phone Daniel Zelaya MD Primary Care Provider Reason for Visit * Reason Comments DIABETES EDUCATION Encounter Details Date Type Department Care Team (Late st Contact Info) Description 10/12/2023 2:15 PM CDT Telemedicine [facility] Diabetes Education [place] [address] [place] [address] Nicolasa Schultz RN, [facility] Type 1 diabetes mellitus without complication (HRC) [...] Sex Assigned at Female 05/05/2021 8:28 PM DRIVER RECRUITER Gender Identity Female 05/05/2021 8:28 PM DRIVER RECRUITER Sexual Orientation Straight 05/05/2021 8: 28 PM DRIVER RECRUITER documented as of this encounter Progress Notes * Nicolasa Schultz RN, [facility] - 10/12/2023 2:15 PM CDT No charge visit, she was not prepared for this visit, having a lot of technical issues with [employer]. She wants to talk to the [facility] and follow up in [place] in clinic in the future. Link sent to schedule as she wants. Electronically signed by Nicolasa Schultz RN, [facility] at 10/12/2023 2:37 PM CDT documented in this encounter Plan of Treatment Upcoming Encounters Date Type Department Care Team (Late st Contact Info) Description 11/22/2023 3:00 PM CDT Appointment [facility] [address] [place] [address] Demetris Alvarez Scheduled Procedures Name Priority Associated Diagnoses Date/Ti me RELEASE TRIGGER FINGER Trigger ring finger of right hand Trigger ring finger of left hand documented as of this encounter Visit Diagnoses Diagnosis Type 1 diabetes mellitus without complication (HRC)- Primary Type 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, not stated as uncontrolled documented in this encounter Care Teams Housekeeping Staff Relationship Specialty Start [place] [address] [place] [address] PCP - General Family Practice 08/23/22 documented as of this encounter
--- OUTSIDE RECORDS SUMMARY | 2023-11-11 08:28 | XMS_ITS | Encounter Summary ---
Author Organization [facility] Address [address] [place] [address] Care Team Providers Care Light Rail Train Operator Name Role Phone Daniel Zelaya MD Primary Care Provider [phone] Encounter Details Date Type Department Care Team (Late st Contact Info) Description 10/25/2023 3:50 PM CDT Lab Visit [facility] [address] [place] [address] Fatigue, unspecified type; Polyarthralgia; Myalgia; Anemia, unspecified type; Type 1 diabetes mellitus without complication (HRC) Social History Tobacco Use Types Packs/Day [...] Sex Assigned at Female 05/05/2021 8:28 PM CONSERVATION OFFICER Gender Identity Female 05/05/2021 8:28 PM CONSERVATION OFFICER Sexual Orientation Straight 05/05/2021 8: 28 PM CONSERVATION OFFICER documented as of this encounter Plan of Treatment Upcoming Encounters Date Type Department Care Team (Late st Contact Info) Description 11/22/2023 3:00 PM CDT Appointment [facility] [address] [place] [address] Demetris Alvarez Scheduled Procedures Name Priority Associated Diagnoses Date/Ti me RELEASE TRIGGER FINGER Trigger ring finger of right hand Trigger ring finger of left hand documented as of this encounter Procedures Procedure Name Priority Date/Time Associated Diagnosis Comments TESTOSTERONE, FEMALE OR CHILDREN Routine 10/25/2023 4:04 PM CDT Fatigue, unspecified type JOSÉ WITH REFLEX TO JOSÉ PROFILE 2 Routine 10/25/2023 4:04 PM CDT Polyarthralgia Myalgia BASIC METABOLIC PANEL Routine 10/25/2023 4:04 PM CDT Fatigue, unspecified type COMPLETE BLOOD COUNT-NO DIFF Routine 10/25/2023 4:04 PM CDT Anemia, unspecified type FERRITIN Routine 10/25/2023 4:04 PM CDT Anemia, unspecified type C-REACTIVE PROTEIN Routine 10/25/2023 4: 04 PM CDT Polyarthralgia Myalgia HGB A1C Routine 10/25/2023 4:04 PM CDT Type 1 diabetes mellitus without complication (HRC) IRON PROFILE (IRON,TIBC,%SAT.(C ALC)) Routine 10/25/2023 4:04 PM CDT Anemia, unspecified type CK, TOTAL Routine 10/25/2023 4:04 PM CDT Myalgia documented in this encounter Results * (ABNORMAL) Hgb A1C (10/25/2023 4:04 PM CDT) Hemoglobin A1C (Rapid) 6.4(H) <=5.6 % 10/27/2023 12:07 PM CDT [facility] Estimated Average Glucose (Calc) 137 < 117 mg/dL 10/27/2023 12:07 PM CDT [facility] Comment:Estimated average gl ucose (eAG) converts A1c into glucose units (mg/dL) and estimates average glucose over the past approximately 3 months. The eAG reference interval (<117 mg/dL) corresponds to an A1c of <5.7%. Blood Venipuncture / Unknown 10/25/2023 4:04 PM CDT 10/25/2023 4:07 PM CDT Narrative [facility] - 10/27/2023 12:07 PM CDT For [...] for further direction. Daniel Zelaya MD LAB_1 [facility] [address] * CK (10/25/2023 4:04 PM CDT) CK, Total 79 29 - 168 U/L 10/25/2023 5:11 PM CDT [facility] Blood Venipuncture / Unknown 10/25/2023 4:04 PM CDT 10/25/2023 4:07 PM CDT Daniel Zelaya MD LAB_1 Performing Organization Address [facility]/ZIP Co de Phone Number [facility] [address] * Ferritin (10/25/2023 4:04 PM CDT) Ferritin 64 9 - 204 ng/mL 10/25/2023 8:04 PM CDT [facility] Blood Venipuncture / Unknown 10/25/2023 4:04 PM CDT 10/25/2023 4:07 PM CDT Daniel Zelaya MD LAB_1 Performing Organization Address [facility] de Phone Number [facility] [address] * Iron Profile (Iron,TIBC,%Sat.(Calc)) (10/25/2023 4:04 PM CDT) Pathologist [facility] Iron 105 50 - 170 mcg/dL 10/25/2023 [...] Daniel Zelaya MD LAB_1 Performing Organization Address [facility] Phone Number [facility] [address] * (ABNORMAL) Complete Blood Count-No Diff (10/25/2023 4:04 PM CDT) WBC 5.0 3.5 - 10.5 x10(9)/L 10/25/2023 4:09 PM CDT [facility] RBC 3.70(L) 3.90 - 5.03 x10(12)/L 10/25/2023 4:09 PM CDT [facility] Hemoglobin 11.5(L) 12.0 - 15.5 g/dL 10/25/2023 4:09 PM CDT [facility] HCT 34.7(L) 34.9 - 44.5 % 10/25/2023 4:09 PM CDT [facility] MCV 93.8 80.0 - 100.0 fL 10/25/2023 4:09 PM CDT [facility] MCH 31.1 27.6 - 33.3 pg 10/25/2023 4:09 PM CDT [facility] MCHC 33.1 31.5 - 35.2 g/dL 10/25/2023 4:09 PM CDT [facility] RDW 12.9 11.9 - 15.5 % 10/25/2023 4:09 PM T [facility] Platelets 237 150 - 450 x10(9)/L 10/25/2023 4:09 PM CDT [facility] Automated NRBC 0 <=0 /100 WBC 10/25/2023 4:09 PM CDT [facility] Blood Venipuncture / Unknown 10/25/2023 4:04 PM CDT 10/25/2023 4:07 PM CDT Daniel Zelaya MD LAB_1 Performing Organization Address City/[facility]/ZIP Co de Phone Number [place] [address] [place] [phone] * C-Reactive Protein (10/25/2023 4:04 PM CDT) [facility] C-Reactive Protein <0.5 0.0 - 0.5 mg/dL 10/25/2023 5:11 PM CDT [facility] Blood Venipuncture / Unknown 10/25/2023 4:04 PM CDT 10/25/2023 4:07 PM CDT Daniel Zelaya MD LAB_1 [facility] [address] [address] * JOSÉ with Reflex to JOSÉ Profile 2 (10/25/2023 4:04 PM CDT) Pathologist [facility] JOSÉ Interpretation Negative Negative 2023 11:45 AM CDT [facility] Blood Venipuncture / Unknown 10/25/2023 4:04 PM CDT 10/25/2023 4:07 PM CDT Daniel Zelaya MD LAB_1 Performing Organization Address City/[facility]/ZIP Co de Phone Number [facility] [place] [facility] [address] * Testosterone, female or children (10/25/2023 4:04 PM CDT) Testosterone Female or Children 15 9 - 55 ng/dL 10/29/2023 3:38 PM CDT [facility] Comment: REFERENCE INTERVAL: Testosterone by Geographic Information Systems Director Females Premenopausal ??9-55 ng/dL Postmenopausal 5-32 ng/dL INTERPRETIVE INFORMATION: Testosterone by Geographic Information Systems Director Free or bioavailable testosterone measurements may provide supportive information. For individuals on testosterone-suppressing hormone therapies (e.g., antiandrogens or estrogens), refer to cisgender female reference intervals. For a complete set of all established reference intervals, refer to ltd[employer]/Tests/Pub/[id number]. This test was developed and its performance characteristics determined by [facility]. It has not been cleared or approved by the [place] Food and Drug Administration. This test was performed in a CLIA certified laboratory and is intended for clinical purposes. Performed By: [facility] [address] [place] [address] Truck Terminal Manager: Hesham Ruff MD, PhD CLIA Number: [id number] Blood Venipuncture / Unknown 10/25/2023 4:04 PM CDT 10/25/2023 4:07 PM CDT Daniel Zelaya MD LAB_1 Performing Organization Address [facility] Co de Phone Number [facility] [address] [place], [place] [address] [place] [address] * (ABNORMAL) Basic Metabolic Panel (10/25/2023 4:04 PM CDT) Sodium 139 136 - 145 mmol/L 10/25/2023 5:11 PM CDT [facility] Potassium 4.4 3.5 - 5.1 mmol/L 10/25/2023 5:11 PM CDT [facility] Chloride 104 98 - 109 mmol/L 10/25/2023 5:11 PM [facility] CO2 25 20 - 29 mmol/L 10/25/2023 5:11 PM [facility] Anion Gap 10 6 - 16 mmol/L 10/25/2023 5:11 PM [facility] Calcium 9.8 8.4 - 10.4 mg/dL 10/25/2023 5:11 PM [facility] BUN 13 7 - 26 mg/dL 10/25/2023 5:11 PM [facility] Creatinine 0.95 0.55 - 1.02 mg/dL 10/25/2023 5:11 PM [facility] Glucose 149(H) 70 - 100 mg/dL 10/25/2023 5:11 PM [facility] Comment:The given reference range is for the fasting state. Non-fasting reference range for glucose is 70 - 180 mg/dL. GFR, Estimated >60 >60 mL/min/1.7 3m2 10/25/2023 5:11 PM [facility] Hours Fasting 9.0 8 - 12 Hours 10/25/2023 5:11 PM [facility] Blood Venipuncture / Unknown 10/25/2023 4:04 PM CDT 10/25/2023 4:07 PM T Daniel Zelaya MD LAB_1 [facility] [address] [place] [address] documented in this encounter Visit Diagnoses Diagnosis Fatigue, unspecified type Polyarthralgia Pain in joint, multiple sites Myalgia Mylagia and myositis, unspecified Anemia, unspecified type Type 1 diabetes mellitus without complication (HRC) Type 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, not stated as uncontrolled documented in this encounter Care Teams Light Rail Train Operator Relationship Specialty [place] [address] [place] [address] PCP - General Family Practice 08/23/22 documented as of this encounter
--- OUTSIDE RECORDS SUMMARY | 2023-11-11 08:28 | XMS_ITS | Encounter Summary ---
Author Organization [facility] Address [address] [address] Care Team Providers Care Web Systems Developer Name Role Phone Daniel Zelaya MD Primary Care Provider [phone] Reason for Referral * Procedure/Equipment (Routine) - Incomplete Specialty Diagnoses / Procedures Referred By Contac t Referred To Contact Procedures MM Mammogram Screening Bilat W 3D Alida W Sandra Shepherd APRN, IT INFRASTRUCTURE SPECIALIST [address] [place] [address] Referral ID Status Reason Start Date Expiration Date V isits Requested Visits Authorized [id number] Incomplete 10/06/2023 01/04/2025 1 1 Reason for Visit * Procedure/Equipment (Routine) - Incomplete Specialty Diagnoses / Procedures Referred By Contac t Referred To Contact Procedures MM Mammogram Screening Bilat W 3D Alida W Sandra Shepherd APRN, CNP [address] [address] [place] [phone] Referral ID Status Reason Start Date Expiration Date V isits Requested Visits Authorized [id number] Incomplete 10/06/2023 01/04/2025 1 1 Encounter Details Date Type Department Care Team (Late st Contact Info) Description 10/06/2023 8:20 AM CDT Ancillary Procedure [facility] [address] [place] [address] Social History Tobacco Use Types Packs/Day Years [...] Sex Assigned at Female 05/05/2021 8:28 PM MARINE TRANSPORT PROFESSIONALS Gender Identity Female 05/05/2021 8:28 PM MARINE TRANSPORT PROFESSIONALS Sexual Orientation Straight 05/05/2021 8: 28 PM MARINE TRANSPORT PROFESSIONALS documented as of this encounter Plan of Treatment Upcoming Encounters Date Type Department Care Team (Late st Contact Info) Description 11/22/2023 3:00 PM CDT Appointment [facility] [address] [place] [address] Demetris Alvarez Scheduled Procedures Name Priority Associated Diagnoses Date/Ti me RELEASE TRIGGER FINGER Trigger ring finger of right hand Trigger ring finger of left hand documented as of this encounter Procedures Procedure Name Priority Date/Time Associated Diagnosis Comments MM MAMMOGRAM SCREENING BILAT W 3D ALIDA W CAD Routine 10/06/2023 8:31 AM CDT documented in this encounter Results * MM Mammogram Screening Bilat W 3D Alida W CAD (10/06/2023 8:31 AM CDT) Anatomical Region Laterality Modality Breast Bilateral Mammography Impressions 10/06/2023 3:16 PM CDT : ACR BI-RADS Category 1: Negative RECOMMENDATION: Follow Up Imaging in 12 months - Bilateral The results and recommendations of this examination will be communicated to the patient. Narrative 10/06/2023 3:16 PM CDT MM MAMMOGRAM SCREENING BILAT W 3D ALIDA W CAD performed on 10/06/23 Compared to: 08/11/2022 MM Mammogram Screening Bilat W 3D Alida W CAD ?? FINDINGS: Bilateral screening mammogram was performed with the assistance of Computer-Aided Detection and breast tomosynthesis. The breasts are heterogeneously dense, which may obscure small masses. There is no radiographic evidence of malignancy. ?? Sandra Martel FILM TECHNICIAN, IT INFRASTRUCTURE SPECIALIST [facility] documented in this encounter Visit Diagnoses Not on filedocumented in this encounter Care Teams Web Systems Developer Relationship Specialty [place] [address] [place] [address] PCP - General Family Practice 08/23/22 documented as of this encounter
--- OUTSIDE RECORDS SUMMARY | 2023-11-11 08:28 | XMS_ITS | Encounter Summary ---
Author Organization [facility] Address [facility] [place] [address] Care Team Providers Care Test Boring Crew Chief Name Role Phone Julia Salter NP Primary Care Provider [phone] Ty Mason Primary Care Provider Unavailable Linette Wright PA-C Unavailable [phone] Clinic, [facility] [place] Primary Care Pr ovider Encounter Details Date Type Department Care Team (Late st Contact Info) Description 03/08/2011 MyC Medical Advice [address] [address] Roxann [place] [address] Social History Tobacco Use Types [...] on filedocumented in this encounter Care Teams Test Boring Crew Chief Relationship Specialty Start Date End Date Julia Salter NP PCP - General INTERNAL MEDICINE - ENDOCRINOLOGY, DIABETES & METABOLISM 02/23/11 12/06/20 Ty Mason PCP - General Family Practice 12/07/20 [facility] [address] [place] [address] PCP - General 11/02/22 Linette Wright PA-C [address] [place] [address] Assigned Neuroscience Provider 10/30/22 06/29/23 documented as of this encounter
--- OUTSIDE RECORDS SUMMARY | 2023-11-11 08:28 | XMS_ITS | Encounter Summary ---
Author Organization [facility] Address [address] [place] [address] Care Team Providers Care Desulfurizer Operator Name Role Phone Julia Salter ELASTIC ATTACHER OVERLOCK Primary Care Provider [phone] [facility] [place] Primary Care Provider Unavailable Linette Wright PA-C Unavailable [phone] [facility], [facility] [place] Primary Care Pr ovider Reason for Visit * Reason Onset Date Comments Medication Question 03/08/2011 pump changes Encounter Details Date Type Department Care Team (Late st Contact Info) Description 03/08/[address] [facility] [address] [facility] [address] [place] [address] Julia Salter NP [address], [address] [place] [address] Medication Question (pump changes) Social History Tobacco Use Types Packs/Day Years [...] on filedocumented in this encounter Care Teams Desulfurizer Operator Relationship Specialty Start Date End Date Julia Salter NP PCP - General INTERNAL MEDICINE - ENDOCRINOLOGY, DIABETES & METABOLISM 02/23/11 12/06/20 Ty Mason PCP - General Family Practice 12/07/20 11/01/22 [facility], Raquel [place] [address] [place] [address] PCP - General 11/02/22 Linette Wright PA-C [address] [place] [id number] Assigned Neuroscience Provider 10/30/22 06/29/23 documented as of this encounter
--- OUTSIDE RECORDS SUMMARY | 2023-11-11 08:28 | XMS_ITS | Clinical Summary ---
Author Organization [facility] Address [facility] [place] [address] Care Team Providers Care Rn Mental Health Name Role Phone Clinic, [facility] [place] Primary Care Pr ovider Allergies Active Allergy [...] titration Inject Subcutaneous. Date last updated: 06/24/2011 Vidyo: Model 522 BASAL RATES and times: 12 [...] 4 hours Carelink username: Criss Carelink passord: [email or web address] 1 pump 0 06/24/2011 Active Atorvastatin Calcium [...] - 100 Active Insulin Time: 4 hours Family History Medical History Relation Comments C.A.D. Father Hypertension Father Cancer Mother Hypertension Mother Relation Status Comments Father Alive Maternal Grandfather Maternal Grandmother Mother Alive Paternal Grandfather Paternal Grandmother Sister Alive Social History Tobacco Use Types Packs/Day Years [...] 02/08/2015 3:48 PM CDT Plan of Treatment Health Maintenance Due Date Last Done Comments ADVANCE CARE PLANNING 1968 ANNUAL REVIEW OF HM ORDERS 1968 CT COLONOGRAPHY 1968 EYE EXAM 1968 FIT 1968 FLEX SIG 1968 YEARLY PREVENTIVE VISIT 1968 sDNA (Cologuard) 1968 COLONOSCOPY 1978 COLORECTAL CANCER SCREENING 1978 HIV SCREENING 11/29/1983 HEPATITIS C SCREENING 1986 HEPATITIS B IMMUNIZATION (1 of 3 - 19+ 3-dose series) 11/29/1987 PAP 1989 LIPID 07/24/2010 07/24/2009 A1C 08/23/2011 02/22/2011, 04/06, 07/23/2009, Additional history exists BMP 02/23/2012 02/22/2011 MICROALBUMIN 02/23/2012 02/22/2011 DIABETIC FOOT EXAM 02/28/2012 02/27/2011 LUNG CANCER SCREENING 2018 Pneumococcal Vaccine: Pediatrics (0 to 5 Years) and At-Risk Patients (6 to 64 Years) (2 of 2 - PCV) 08/18/2021 08/18/2020, 08/14/1997 COVID-19 Vaccine (2022- season) 2023 02/18/2022, 04/15/2021, 07/31/2020, Additional history exists PHQ-2 (once per calendar year) 2023 INFLUENZA VACCINE (Season Ended) 2024 03/11/2022, 03/18/2021, 03/19/2020, Additional history exists MAMMO SCREENING 08/11/2024 08/11/2022, 08/11/2022 DTAP/TDAP/TD IMMUNIZATION (3 - Td or Tdap) 06/21/2027 06/21/2017, 11/02/2007, 08/05/1997 ZOSTER IMMUNIZATION Completed 05/01/2021, HPV IMMUNIZATION Aged Out No longer e ligible based on patient's age to complete this topic IPV IMMUNIZATION Aged Out No longer e ligible based on patient's age to complete this topic MENINGITIS IMMUNIZATION Aged Out No l onger eligible based on patient's age to complete this topic RSV MONOCLONAL ANTIBODY Aged Out No l onger eligible based on patient's age to complete this topic Procedures Procedure Name Priority Date/Time Associated Diagnosis Comments MA SCREENING BILATERAL W/ ALIDA Routine 08/11/2022 9:12 AM BRIAR WOOD SORTER C FOOT EXAM Routine 02/27/2011 4:12 PM [...] 3:34 PM CDT) Creatinine Urine 58 mg/dL [facility] Albumin Urine mg/L 3 mg/L [facility] Albumin Urine mg/g Cr 5.17 0 - 20 mg/g Cr [facility] Urine specimen (specimen) 02/22/2011 3:34 PM CDT 02/22/2011 3:39 PM CDT Loan Fitzpatrick PA-C LAB - URINE OR DERABLES [facility] * (ABNORMAL) Hemoglobin A1c (02/22/2011 3:33 PM CDT) Hemoglobin A1C 7.8(H) 4.3 - 6.0 % [facility] Blood specimen (specimen) 02/22/2011 3:33 PM CDT 02/22/2011 3:38 PM CDT Loan Fitzpatrick PA-C LAB - BLOOD OR DERABLES [facility] * (ABNORMAL) Comprehensive metabolic panel (02/22/2011 3:33 PM CDT) Sodium 140 133 - 144 mmol/L [facility] Potassium 3.9 3.4 - 5.3 mmol/L [facility] Chloride 102 94 - 109 mmol/L [facility] Carbon Dioxide 27 20 - 32 mmol/L [facility] Anion Gap 10 6 - 17 mmol/L [facility] Glucose 182(H) 60 - 99 mg/dL [facility] Urea Nitrogen 11 5 - 24 mg/dL [facility] Creatinine 0.99 0.52 - 1.04 mg/dL [facility] GFR Estimate 62 >60 mL/min/1.7 m2 [facility] GFR Estimate If Black 74 >60 mL/min/1.7 m2 [facility] Calcium 9.6 8.5 - 10.4 mg/dL [facility] Bilirubin Total 0.4 0.2 - 1.3 mg/dL [facility] Albumin 4.4 3.9 - 5.1 g/dL [facility] Comment:Reference range everett ged on 02/27/2008. Protein Total 7.6 6.8 - 8.8 g/dL [facility] Comment:As of 07, refer ence range reflects plasma specimen type. Alkaline Phosphatase 93 40 - 150 U/L [facility] ALT 18 0 - 50 U/L [facility] AST 23 0 - 45 U/L [facility] Blood specimen (specimen) 02/22/2011 3:33 PM CDT 02/22/2011 3:38 PM CDT Loan Fitzpatrick PA-C LAB - BLOOD OR DERABLES [facility] * (ABNORMAL) Lipid panel (07/24/2009) Cholesterol 207(A) 115 - 199 mg/dL Triglycerides 78 mg/dL HDL Cholesterol 95 mg/dL LDL Cholesterol Calculated 96 mg/dL VLDL-Cholesterol ng/dL Cholesterol/HDL Ratio Blood specimen (specimen) 07/24/2009 Julia Salter NP LAB - BLOOD ORDERABL ES from Last 3 Months or Most Recently Relevant to Health Maintenance Care Teams Rn Mental Health Relationship Specialty Start Date End Date Clinic, [facility] [place] [address] [place] [address] PCP - General 11/02/22
--- OUTSIDE RECORDS SUMMARY | 2023-11-11 08:28 | XMS_ITS | Encounter Summary ---
Author Organization [facility] Address [address] [place] [address] Care Team Providers Care Dolphin Researcher Name Role Phone Daniel Zelaya MD Primary Care Provider [phone] Encounter Details Date Type Department Care Team (Late st Contact Info) Description 10/12/2023 E-Visit [facility] [address] [place] [address] Mychart, [place] [address] Social History Tobacco Use Types Packs/Day Years [...] Sex Assigned at Female 05/05/2021 8:28 PM DISASTER OR DAMAGE CONTROL SPECIALIST Gender Identity Female 05/05/2021 8:28 PM DISASTER OR DAMAGE CONTROL SPECIALIST Sexual Orientation Straight 05/05/2021 8: 28 PM DISASTER OR DAMAGE CONTROL SPECIALIST documented as of this encounter Nursing Notes * Lizbeth Madrid - 11/07/2023 9:38 AM CDT Other Questions/Concerns/FYI Is this a symptom? No What is your question or concern? Pre op done on 11/03/23 [facility] calling has not received please fax to [phone] AttCarroll Have you recently been seen for this? Yes: 11/03/23 Is it okay to leave a detailed message on your voicemail? Yes Is there anything else I can help you with today? documented in this encounter Plan of Treatment Upcoming Encounters Date Type Department Care Team (Late st Contact Info) Description 11/22/2023 3:00 PM CDT Appointment [facility] [address] [place] [address] Demetris Alvarez Scheduled Procedures Name Priority Associated Diagnoses Date/Ti me RELEASE TRIGGER FINGER Trigger ring finger of right hand Trigger ring finger of left hand documented as of this encounter Visit Diagnoses Not on filedocumented in this encounter Care Teams Dolphin Researcher Relationship Specialty [place] [address] [place] [address] PCP - General Family Practice 08/23/22 documented as of this encounter
--- OUTSIDE RECORDS SUMMARY | 2023-11-11 08:29 | XMS_ITS | Encounter Summary ---
Author Organization [facility] Address [address] [address] Care Team Providers Care Cloth Designer Name Role Phone Daniel Zelaya MD Primary Care Provider [phone] Encounter Details Date Type Department Care Team (Late st Contact Info) Description 05/20/2014 [facility] [address] [place] [address] Julia Salter MD [address] [facility] [address] [place], [place] [id number] RX Social History Tobacco Use Types Packs/Day Years Used Date Smoking Tobacco: Former Cigarettes 0 06/06/1992 - 06/06/2007 Smokeless Tobacco: Never Alcohol Use Standard Drinks/Week Comments Yes 0 (1 standard drink = 0.6 oz pur e alcohol) Sex and Gender Information Value Date Recorded Sex Assigned at Female 05/05/2021 8:28 PM SOFTWARE TEAM LEADER Gender Identity Female 05/05/2021 8:28 PM SOFTWARE TEAM LEADER Sexual Orientation Straight 05/05/2021 8: 28 PM SOFTWARE TEAM LEADER documented as of this encounter Plan of Treatment Upcoming Encounters Date Type Department Care Team (Late st Contact Info) Description 11/22/2023 3:00 PM CDT Appointment [facility] [address] [place], [place] [address] Demetris Alvarez Scheduled Procedures Name Priority Associated Diagnoses Date/Ti me RELEASE TRIGGER FINGER Trigger ring finger of right hand Trigger ring finger of left hand documented as of this encounter Visit Diagnoses Not on filedocumented in this encounter Care Teams Cloth Designer Relationship Specialty [place] [address] [place] [address] PCP - General Family Practice 08/23/22 documented as of this encounter
--- OUTSIDE RECORDS SUMMARY | 2023-11-11 08:29 | XMS_ITS | Encounter Summary ---
Author Organization [facility] Address [address] [place] [address] Care Team Providers Care Tower Equipment Repairer Name Role Phone Daniel Zelaya MD Primary Care Provider [phone] Reason for Visit * Reason Comments Recheck 2 months check on ca llusing, bilateral foot check, dm1 hx, custom orthotics Encounter Details Date Type Department Care Team (Late st Contact Info) Description 08/15/2023 9:00 AM CDT Office Visit [facility] [place] [address] [facility] [address] [place] [address] Suraj Barriga, DPM [address] [place] [address] Charcot's joint of foot in type 1 diabetes mellitus (HRC) (Primary Dx); Type 1 diabetes mellitus with peripheral autonomic neuropathy (HRC); Pre-ulcerative calluses Social History Tobacco Use Types Packs/Day Years Used Date Smoking Tobacco: Former Cigarettes 0 06/06/1992 - 06/06/2007 Smokeless Tobacco: Never Alcohol Use Standard Drinks/Week Comments Yes 2 (1 standard drink = 0.6 oz pur e alcohol) Financial Resource Strain Answer Date R ecorded [...] Sex Assigned at Female 05/05/2021 8:28 PM GO GO DANCER Gender Identity Female 05/05/2021 8:28 PM GO GO DANCER Sexual Orientation Straight 05/05/2021 8: 28 PM GO GO DANCER documented as of this encounter Progress Notes * Suraj Barriga DPM - 08/15/2023 9:00 AM CDT DATE OF VISIT: 08/15/2023 SUBJECTIVE: Patient presents for follow-up. The patient does come in every two months for evaluation. She did get inserts on October 27, 2022. She believes that these are different than her other insertsand that they seem to be more firm. Because of the hyperkeratotic area on the plantar right foot, I do want to see her for follow-up. Ihave been taking x-rays every year to monitor Charcot. She did have x-rays on November 03, 2022 She is currently not having any discomfort. Adverse Drug Reactions: Allergies Allergen Reactions Sulfa Antibiotics Other, see comments and Hives Itchy, difficult breathing Sulfamethoxazole-Trimethoprim Hives Tegaderm Hydrocolloid [Duoderm Hydroactive] Rash If pt sprays area with benadryl or betadine prior to applying the tegaderm film pt does not get rash/pt. Medications: Reviewed. See Medication List in Epic . Review of Systems: Significant for Diabetes. The patient is a psychotherapist Past Medical History: Diagnosis Date Alcohol ingestion, more than 4 drinks/day 02/11/2012 DM type 1 (diabetes mellitus, type 1) ([facility]) 10/19/2012 Polyneuropathy in diabetes(357.2) ([facility]) 02/11/2012 Type I (juvenile type) diabetes mellitus with neurological manifestations, not stated as uncontrolled(250.61) ([facility]) 02/11/2012 Patient Active Problem List Diagnosis Date Noted Major depressive disorder, single episode, unspecified ([facility]) Type 2 diabetes mellitus without complications ([facility]) Trigger ring finger of right hand 02/22/2023 Trigger ring finger of left hand 02/22/2023 Charcot's joint arthropathy in type 1 diabetes mellitus ([facility]) 11/09/2022 Overview Note: Managed by Podiatry Dr. Barriga. 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 Uses insulin pump. Insulin pump status ([facility]) 02/16/2012 Encounter for long-term (current) use of insulin ([facility]) 02/16/2012 Type 1 diabetes mellitus with neurological manifestations ([facility]) 02/11/2012 Overview Note: Managed by Endocrinology. Uses insulin pump. Diabetic polyneuropathy ([facility]) 02/11/2012 Exercise induced bronchospasm ([facility]) 06/15/2006 Genital herpes ([facility]) 06/15/2006 Overview Note: Herpes, Genital OBJECTIVE: DP and PT pulses are palpable. Previous testing of her sensation shows that it is diminished to sharp and dull discrimination as well as vibratory sensation. She did have some areas that she appeared to feel without difficulty. There is no weakness or muscle testing of the foot ankle or lower leg. On her right foot, she does have contractions noted to all of her lesser toes. These are rigid deformities. The tips of her toes do not purchase the ground and she has the appearance of subluxation at the MPJs. There is a hyperkeratotic area on the plantar 2nd metatarsal head of the right foot. There is no obvious ulcer but the area is pre ulcerative. The hyperkeratotic tissue is moderate today and there is no hemorrhagic change. In the past, the hemorrhagic change has been infrequent.. Upon reduction, there is no evidence of ulceration. On her left foot, the toes were in a rectus position and there were no hyperkeratotic areas present. There is no obvious swelling identified. X-rays obtained previously did not show any changes from previous films. Right foot 11/03/2022 Routine Narrative & Impression IMPRESSION COMPARISON: 10/19/2021 FINDINGS: 3 images of the right foot. There is no acute displaced fracture. 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 Fracture deformities of the third and fourth metatarsals distally. Hallux valgus. No pes planus. Mild midfoot degenerative change, most pronounced dorsally. Claw toe deformities. Vascular calcification Left foot: 11/03/2022 Routine Narrative & Impression IMPRESSION COMPARISON: 10/19/2021. FINDINGS: Bony structures of the left foot are intact. At the site of the previously demonstrated fracture in the proximal fourth metatarsal, there is periosteal reaction along the lateral cortex. Fracture lines are no longer evident. Pes planus and hammertoe deformities again demonstrated on the lateral view. Joint space loss throughout the tarsometatarsal joints, particularly at the third TMT joint, again demonstrated. There is no dislocation or other acute finding.. ASSESSMENT: ICD-10-CM 1. Charcot's joint of foot in type 1 diabetes mellitus (HRC) E10.610 2. Type 1 diabetes mellitus with peripheral autonomic neuropathy (HRC) E10.43 3. Pre-ulcerative calluses L84 PLAN: Treatment options were discussed with the patient. X-rays were obtained previously.. I discussed with the patient that there does not appear to be any change. I informed the patient that she should continue with her inserts. She does have a large hyperkeratotic area on the plantar 2nd metatarsal head. Today, there is no hemorrhagic change. Close observation is necessary. She has gently filed this down. She has been coming in every two months but may now extend this to three months. She did get new accommodative inserts in October 2022. She does use her own shoes. Next x-rays will be October 2023. These will be bilateral feet. The patient was discharged ambulatory and in stable condition. No orders of the defined types were placed in this encounter. No orders of the defined types were placed in this encounter. (This note was created using voice recognition software and may contain some teller coordinator errors) documented in this encounter Plan of Treatment Upcoming Encounters Date Type Department Care Team (Late st Contact Info) Description 11/22/2023 3:00 PM CDT Appointment [facility] [address] [place] [address] Demetris Alvarez Scheduled Procedures Name Priority Associated Diagnoses Date/Ti me RELEASE TRIGGER FINGER Trigger ring finger of right hand Trigger ring finger of left hand documented as of this encounter Visit Diagnoses Diagnosis Charcot's joint of foot in type 1 diabetes mellitus (HRC)- Primary Type I (juvenile type) diabetes mellitus with neurological manifestations, not stated as uncontrolled Type 1 diabetes mellitus with peripheral autonomic neuropathy (HRC) Type I (juvenile type) diabetes mellitus with neurological manifestations, not stated as uncontrolled Pre-ulcerative calluses Corns and callosities documented in this encounter Care Teams Tower Equipment Repairer Relationship Specialty [place] [address] [place] [address] PCP - General Family Practice 08/23/22 documented as of this encounter
--- OUTSIDE RECORDS SUMMARY | 2023-11-11 08:29 | XMS_ITS | Encounter Summary ---
Author Organization [facility] Address [address] [address] Care Team Providers Care Diamond Finishing Supervisor Name Role Phone Daniel Zelaya MD Primary Care Provider [phone] Encounter Details Date Type Department Care Team (Late st Contact Info) Description 06/14/2012 [facility] [address] [facility] [place] [address] Julia Salter MD [address] [facility] [address], [place] [address] CERTIFICATE OF MEDICAL NECESSITY Social History Tobacco Use Types Packs/Day Years Used Date Smoking Tobacco: Former Cigarettes 0 06/06/1992 - 06/06/2007 Smokeless Tobacco: Never Alcohol Use Standard Drinks/Week Comments Not Asked 0 (1 standard drink = 0.6 oz pur e alcohol) Sex and Gender Information Value Date Recorded Sex Assigned at Female 05/05/2021 8:28 PM RN IMAGING Gender Identity Female 05/05/2021 8:28 PM RN IMAGING Sexual Orientation Straight 05/05/2021 8: 28 PM RN IMAGING documented as of this encounter Progress Notes * Julia Salter MD - 06/14/2012 12:00 AM CST IMAGING documented in this encounter Plan of Treatment Upcoming Encounters Date Type Department Care Team (Late st Contact Info) Description 11/22/2023 3:00 PM CDT Appointment [facility] [address] [place] [address] Demetris Alvarez Scheduled Procedures Name Priority Associated Diagnoses Date/Ti me RELEASE TRIGGER FINGER Trigger ring finger of right hand Trigger ring finger of left hand documented as of this encounter Visit Diagnoses Not on filedocumented in this encounter Care Teams Diamond Finishing Supervisor Relationship Specialty [place] [address] [place] [address] PCP - General Family Practice 08/23/22 documented as of this encounter
--- OUTSIDE RECORDS SUMMARY | 2023-11-11 08:29 | XMS_ITS | Encounter Summary ---
Author Organization [facility] Address [address] [place] [address] Care Team Providers Care Aircraft Landing Gear Inspector Name Role Phone Daniel Zelaya MD Primary Care Provider [phone] Reason for Visit * Reason Comments Refill estradiol (VIVELLEDO T) 0.05 MG/24HR biweekly patch [Pharmacy Med Name: ESTRADIOL 0.05MG PATCH (TWICE WK)] Encounter Details Date Type Department Care Team (Late st Contact Info) Description 08/20/2023 Refill [facility]-SUPERVISOR DRIED YEAST [address] [facility], [address] [address] Laith Martel, RETAIL MANAGEMENT KEYHOLDER, HELMET HAT SWEATBAND PUNCHER [address] [facility] [address] [place] [address] Refill (estradiol (VIVELLEDOT) 0.05 MG/24HR biweekly patch [Pharmacy Med Name: ESTRADIOL 0.05MG PATCH (TWICE WK)]) Social History Tobacco Use Types Packs/Day Years [...] Sex Assigned at Female 05/05/2021 8:28 PM CISCO CERTIFIED NETWORK PROFESSIONAL Gender Identity Female 05/05/2021 8:28 PM CISCO CERTIFIED NETWORK PROFESSIONAL Sexual Orientation Straight 05/05/2021 8: 28 PM CISCO CERTIFIED NETWORK PROFESSIONAL documented as of this encounter Nursing Notes * Kelsie Castro RN - 08/22/2023 10:49 AM CDT Renewed medication per medication refill standing order. Requested Prescriptions Signed Prescriptions Disp Refills estradiol (VIVELLEDOT) 0.05 MG/24HR biweekly patch 24 Patch 0 Sig: APPLY 1 PATCH TOPICALLY TO THE SKIN 2 TIMES A WEEK Authorizing Provider: LAITH MARTEL Ordering User: KELSIE CASTRO Future Appointments Provider Department [place] 09/16/2023 3:30 PM Laith Martel, RETAIL MANAGEMENT KEYHOLDER, HELMET HAT SWEATBAND PUNCHER [facility]-SUPERVISOR DRIED YEAST PN [facility] 09/06/22. Contacted patient and appointment scheduled. Has physical with PCP but sees ASSISTANT PRODUCT MANAGER for pap/pelvic/breast/HRT. Review of chart shows last pap 2018 (see Care Everywhere). * Buddy Fox Xrwcomm - 08/20/2023 1:03 PM CDT estradiol (VIVELLEDOT) 0.05 MG/24HR biweekly patch [Pharmacy Med Name: ESTRADIOL 0.05MG PATCH (TWICE WK)] Miscellaneous - 12 Month Visit 1 -> Refill x 3 months, qty: 24, refills: 3 (until due for an office visit) Last qualifying visit: 09/06/2022 (in [facility] with LAITH MARTEL) Next scheduled visit: None Last ordered by LAITH MARTEL: 09/06/2022 (348 days ago) QTY: 24, Refills: 3, Sig: apply 1 patch to skin two times a week. (changed but equivalent) [employer] Embedded Refills, Reference: [id number], 08/20/2023 1:03:52 PM CDT, Pool: SHANKAR CORTES REFILL ([id number]) documented in this encounter Plan of Treatment Upcoming Encounters Date Type Department Care Team (Late st Contact Info) Description 11/22/2023 3:00 PM CDT Appointment [facility] [address] [place] [address] Demetris Alvarez Scheduled Procedures Name Priority Associated Diagnoses Date/Ti me RELEASE TRIGGER FINGER Trigger ring finger of right hand Trigger ring finger of left hand documented as of this encounter Visit Diagnoses Not on filedocumented in this encounter Care Teams Aircraft Landing Gear Inspector Relationship Specialty [place] [address] [place] [address] PCP - General Family Practice 08/23/22 documented as of this encounter
--- OUTSIDE RECORDS SUMMARY | 2023-11-11 08:29 | XMS_ITS | Encounter Summary ---
Author Organization [facility] Address [address], [place] [address] Care Team Providers Care Visitor Services Assistant Name Role Phone Daniel Zelaya MD Primary Care Provider [phone] Encounter Details Date Type Department Care Team (Late st Contact Info) Description 09/23/2017 [facility] [address] [place] [address] Julia Salter MD [address] [facility] [address], [place] [address] INSULIN TREATED DIABETES MELLITUS REPORT Social History Tobacco Use Types Packs/Day Years Used Date Smoking Tobacco: Former Cigarettes 0 06/06/1992 - 06/06/2007 Smokeless Tobacco: Never Alcohol Use Standard Drinks/Week Comments Yes 0 (1 standard drink = 0.6 oz pur e alcohol) Sex and Gender Information Value Date Recorded Sex Assigned at Female 05/05/2021 8:28 PM TUNNEL MAN Gender Identity Female 05/05/2021 8:28 PM TUNNEL MAN Sexual Orientation Straight 05/05/2021 8: 28 PM TUNNEL MAN documented as of this encounter Plan of Treatment Upcoming Encounters Date Type Department Care Team (Late st Contact Info) Description 11/22/2023 3:00 PM CDT Appointment [facility] [address] [place], [place] [address] Demetris Alvarez Scheduled Procedures Name Priority Associated Diagnoses Date/Ti me RELEASE TRIGGER FINGER Trigger ring finger of right hand Trigger ring finger of left hand documented as of this encounter Visit Diagnoses Not on filedocumented in this encounter Care Teams Visitor Services Assistant Relationship Specialty [place] [address] [place] [address] PCP - General Family Practice 08/23/22 documented as of this encounter
--- OUTSIDE RECORDS SUMMARY | 2023-11-11 08:29 | XMS_ITS | Encounter Summary ---
[facility] Address [address] [place] [address] Care Team Providers Care Property Management Bookkeeper Name Role Phone Daniel Zelaya MD Primary Care Provider [phone] Encounter Details Date Type Department Care Team (Late st Contact Info) Description 03/06/2016 [facility] [address] [place] [address] Elin Chauhan MD [address] [place] [address] Social History Tobacco Use Types Packs/Day Years Used Date Smoking Tobacco: Former Cigarettes 0 06/06/1992 - 06/06/2007 Smokeless Tobacco: Never Alcohol Use Standard Drinks/Week Comments Yes 0 (1 standard drink = 0.6 oz pur e alcohol) Sex and Gender Information Value Date Recorded Sex Assigned at Female 05/05/2021 8:28 PM SHIPPING SPECIALIST Gender Identity Female 05/05/2021 8:28 PM SHIPPING SPECIALIST Sexual Orientation Straight 05/05/2021 8: 28 PM SHIPPING SPECIALIST documented as of this encounter Plan of Treatment Upcoming Encounters Date Type Department Care Team (Late st Contact Info) Description 11/22/2023 3:00 PM CDT Appointment [facility] [address] [place], [place] [address] Demetris Alvarez Scheduled Procedures Name Priority Associated Diagnoses Date/Ti me RELEASE TRIGGER FINGER Trigger ring finger of right hand Trigger ring finger of left hand documented as of this encounter Visit Diagnoses Diagnosis Encounter for long-term (current) use of medications- Primary Encounter for long-term (current) use of other medications documented in this encounter Care Teams Property Management Bookkeeper Relationship Specialty [place] [address] [place] [address] PCP - General Family Practice 08/23/22 documented as of this encounter
--- OUTSIDE RECORDS SUMMARY | 2023-11-11 08:29 | XMS_ITS | Encounter Summary ---
Author Organization [facility] Address [address], [place] [address] Care Team Providers Care Digital Press Operator Name Role Phone Daniel Zelaya MD Primary Care Provider [phone] Reason for Referral * Procedure/Equipment (Routine) - Incomplete Specialty Diagnoses / Procedures Referred By Kristie t Referred To Contact Diagnoses Visit for screening mammogram Breast screening Procedures MM Mammogram Screening Bilat W CAD Sandra Martel APRN, COMMISSIONER OF OFFICIALS [address] [place] [id number] Referral ID Status Reason Start Date Expiration Date V isits Requested Visits Authorized [id number] Incomplete 09/16/2023 12/15/2024 1 1 Reason for Visit * Reason Comments EXAM,ORACLE WMS CONSULTANT FOLLOW-UP,HORMONE Encounter Details Date Type Department Care Team (Late st Contact Info) Description 09/16/2023 3:30 PM CDT Office Visit [facility]-GUEST RELATIONS OFFICER [address] [facility], [address] [place] [address] Sandra Martel APRN, COMMISSIONER OF OFFICIALS [address] [place], [place] [id number] Post-menopause on HRT (hormone replacement therapy) (Primary Dx); Screening for malignant neoplasm of cervix; Special screening examination for human papillomavirus (HPV); Visit for screening mammogram; Breast screening; Special screening for malignant neoplasms, colon Social History Tobacco Use Types Packs/Day Years [...] Sex Assigned at Female 05/05/2021 8:28 PM WINDOWS SERVER SPECIALIST Gender Identity Female 05/05/2021 8:28 PM WINDOWS SERVER SPECIALIST Sexual Orientation Straight 05/05/2021 8: 28 PM WINDOWS SERVER SPECIALIST documented as of this encounter Last Filed Vital Signs Vital Sign Reading Time Taken Comments Blood Pressure 153/76 09/16/2023 3:29 PM CDT Pulse 94 09/16/2023 3:29 PM CDT Temperature - - Respiratory Rate - - Oxygen Saturation - - Inhaled Oxygen Concentration - - Weight 68.4 kg (150 lb 12.8 oz) 09/16/2023 3:29 PM CDT Height - - Body Mass Index 26.09 07/12/2023 3:13 PM WINDOWS SERVER SPECIALIST documented in this encounter Progress Notes * Sandra Martel, SOFTWARE DESIGN ENGINEER, COMMISSIONER OF OFFICIALS - 09/16/2023 3:30 PM CDT [facility] Chief Complaint Patient presents with EXAM,ORACLE WMS CONSULTANT FOLLOW-UP,HORMONE SUBJECTIVE: Lizbeth Pretty is a 52 y.o. who presents today for follow-up of the above-stated concern(s).I saw her previously on 09/06/2022 for follow-up of of perimenopausal symptoms and initiation of hormone replacement therapy. She opted to try Vivelle-Dot 0.05 mg/day with nightly Prometrium 100 mg. She reports she has had improvement in her vasomotor symptoms, anxiety/depression, and sleep. Stillhas low libido. Denies any vaginal bleeding. Overall happy with the HRT but wonder if she should increase the dose for her libido. Still struggling with fatigue and myalgias. She follows in Primary Care for routine health maintenance, dyslipidemia, and hypertension and was last seen in November 2022. Continues on Crestor and lisinopril. Blood pressure elevated today. Has homecuff but doesn't check BP often. Has upcoming visit on 09/21. OB Hx: , SAB x1 Cash Management Associate Hx: Patient's last menstrual period was 04/21/2022 (approximate). Sexual activity: rare Pap smear history: 10/09/2018 NILM, HPV neg Labs: TSH, Sensitive Date Value Ref Range Status 07/12/2023 1.15 0.30 - 4.50 uIU/mL Final Hemoglobin A1C Date Value Ref Range Status 05/16/2020 6.7 (H) <=5.6 % Final Hemoglobin Date Value Ref Range Status 07/12/2023 11.2 (L) 12.0 - 15.5 g/dL Final Ferritin Date Value Ref Range Status 07/12/2023 44 9 - 204 ng/mL Final Cholesterol Date Value Ref Range Status 07/12/2023 208 (H) 0 - 199 mg/dL Final HDL Cholesterol Date Value Ref Range Status 07/12/2023 112 >=40 mg/dL Final LDL, Calculated Date Value Ref Range Status 07/12/2023 85 <130 mg/dL Final Triglyceride Date Value Ref Range Status 07/12/2023 54 <=149 mg/dL Final Aspartate Aminotransferase Date Value Ref Range Status 10/19/2012 26 0 - 45 U/L Final ALT (SGPT) Date Value Ref Range Status 03/11/2014 35 0 - 69 U/L Final Imagin08/11/2022 3D screening mammogram neg, cat C density OBJECTIVE: BP (!) 153/76 (BP Location: Right Arm, BP Cuff Size: Regular - Long) Pulse 94 Wt 150 lb 12.8 oz(68.4 kg) LMP 04/21/2022 (Approximate) BMI 26.09 kg/m?? PSYCH: normal mood and appropriate affect, NAD, alert and oriented BREASTS: normal appearance, nipples everted, no abnormal palpable masses ABDOMEN: soft, non-tender, without hepatosplenomegaly, masses, or hernias. PELVIC: normal external genitalia and urethra; atrophic. A sangeeta speculum was inserted into the vagina. Elton, moist vaginal and cervical mucosa, without lesions. Cervix posterior and deviated to patient's left side with nulliparous appearance. Pap collected. On bimanual exam, anteverted uterus is mobile, normal size, shape & consistency, with no uterine or adenexal masses appreciated. SKIN: no rashes, lesions, or ulcers. Warm, dry, intact. EXTREMITIES: FROM, normal gait without edema, lesions, or deformity. ASSESSMENT/PLAN: ICD-10-CM 1. Post-menopause on HRT (hormone replacement therapy) Z79.890 2. Screening for malignant neoplasm of cervix Z12.4 Scr Pap Smer; Obtain Prep&Convy-Lab PAP Test 3. Special screening examination for human papillomavirus (HPV) Z11.51 HPV with 16 18 Genotyping 4. Visit for screening mammogram Z12.31 MM Mammogram Screening Bilat W CAD 5. Breast screening Z12.39 MM Mammogram Screening Bilat W CAD 6. Special screening for malignant neoplasms, colon Z12.11 Discussed option to increase estradiol dose or consider topical testosterone for low libido. Reviewed no long-term data on testosterone in women and no FDA- approved option; usually use compounded testosterone or men's testosterone at lower dose. I have some reservations about this given her PMH of hyperlipidemia, T1DM, and hypertension. Would consider increasing estradiol dose first. If no improvement with that, [facility] with [facility]. She will have her follow-up with PCP next week and review cholesterol, fatigue, anemia. After this visit consider increasing estradiol dose. She will follow-up with me on MyChart. Breast and pelvic exam today unremarkable. Pap collected. Mammogram ordered. RTC for annual exam or sooner PRN. Sandra Martel APRN, CNP documented in this encounter Plan of Treatment Upcoming Encounters Date Type Department Care Team (Late st Contact Info) Description 11/22/2023 3:00 PM CDT Appointment [facility] [address] [place] [address] Demetris Alvarez Scheduled Orders Name Type Priority Associated Diagnoses Orde r Schedule MM Mammogram Screening Bilat W CAD Imaging New Routine Visit for screening mammogram Breast screening Expected: 09/16/2023 (Approximate), Expires: 09/15/2024 Scheduled Procedures Name Priority Associated Diagnoses Date/Ti me RELEASE TRIGGER FINGER Trigger ring finger of right hand Trigger ring finger of left hand documented as of this encounter Procedures Procedure Name Priority Date/Time Associated Diagnosis Comments PAP TEST Routine 09/16/2023 3:54 PM CDT Screening for malignant neoplasm of cervix HPV WITH 16 18 GENOTYPING, CERVICAL/ENDOCERVI ANA CRISTINA Routine 09/16/2023 3:54 PM CDT Special screening examination for human papillomavirus (HPV) documented in this encounter Results * HPV with 16 18 Genotyping (09/16/2023 3:54 PM CDT) HPV High Risk Type 16 PCR Not Detected Not detected 10/13/2023 8:01 AM CDT [facility] HPV High Risk Type 18 PCR Not Detected Not Detected 10/13/2023 8:01 AM CDT [facility] HPV High Risk Other Than 16/18 Not Detected Not detected 10/13/2023 8:01 AM T [facility] Cervical Broom ENTIRE ENDOCERVIX / Unknown 09/16/2023 3:54 PM CDT 09/16/2023 4:26 PM CDT [facility] - 10/13/2023 8:01 AM CDT [facility] [...] 59, 66, and 66). Sandra Martel APRN, [facility] [address], [facility] * PAP Test (09/16/2023 3:54 PM CDT) Case Report Pap ? Case: [id number] ? Authorizing Provider: ??Gave, Sandra Mendez, SOFTWARE DESIGN ENGINEER, ?? Collected: ? 09/16/2023 1554 ? COMMISSIONER OF OFFICIALS ? Ordering Location: ? [facility] ? Received: ?09/16/2023 1626 ? Services-GUEST RELATIONS OFFICER ? First Screen: ?Kelsey, Kenzie P, CT (ASCP) ? Specimen: ?Pap Test, Routine, Cervix/Endocervix ? 10/13/2023 8:01 AM CDT [facility] Pap Specimen Adequacy Satisfactory for evaluation, endocervical/lew sformation zone component absent. 10/13/2023 8:01 AM CDT [facility] Pap Interpretation (NILM) Negative for intraepithelial lesion or malignancy. 10/13/2023 8:01 AM CDT [facility] Pap Disclaimer The Pap test is a screening test to aid in the detection of cervical and vaginal cancers and their precursor lesions. It is not a diagnostic procedure and should not be used as the sole means of detecting malignancy. Both false-positive and false-negative results may occur. 10/13/2023 8:01 AM CDT [facility] Gross Description The specimen is received in SurePath fixative and properly labeled. 1 Pap-stained SurePath slide is prepared. 10/13/2023 8:01 AM CDT [facility] Embedded Images 8:01 AM CDT [facility] Other Specimen Type ENTIRE ENDOCERVIX / Unknown 09/16/2023 3:54 PM CDT 09/16/2023 4:26 PM CDT Comment:LMP: Patient's last menstrual period was 04/21/2022 (approximate). Sandra Martel APRN, CNP LAB PATHOLOGY Performing Organization Address City/State/[facility] Co de Phone Number [facility] [address] [place], [place] [phone] [place] [address] documented in this encounter Visit Diagnoses Diagnosis Post-menopause on HRT (hormone replacement therapy)- Primary Need for prophylactic hormone replacement therapy (postmenopausal) Screening for malignant neoplasm of cervix Screening for malignant neoplasm of the cervix Special screening examination for human papillomavirus (HPV) Visit for screening mammogram Other screening mammogram Breast screening Breast screening, unspecified Special screening for malignant neoplasms, colon documented in this encounter Care Teams Digital Press Operator Relationship Specialty [place] [address] [place] [address] PCP - General Family Practice 08/23/22 documented as of this encounter
--- OUTSIDE RECORDS SUMMARY | 2023-11-11 08:29 | XMS_ITS | Encounter Summary ---
Author Organization [facility] Address [address] [place] [address] Care Team Providers Care Hotel Housekeeper Name Role Phone Daniel Zelaya MD Primary Care Provider [phone] Reason for Visit * Reason Comments Refill Continuous Blood Glu c Transmit (DEXCOM G6 TRANSMITTER) [Pharmacy Med Name: DEXCOM G6 TRANSMITTER] Encounter Details Date Type Department Care Team (Late st Contact Info) Description 08/11/2023 Refill [facility] [address] End[address] [facility] [place] [address] Marco Chamberlain MBBS [address] [place] [address] Refill (Continuous Blood Gluc Transmit (DEXCOM G6 TRANSMITTER) [Pharmacy Med Name: DEXCOM G6 TRANSMITTER]) Social History Tobacco Use Types Packs/Day Years [...] Sex Assigned at Female 05/05/2021 8:28 PM BEATER ENGINEER HELPER Gender Identity Female 05/05/2021 8:28 PM BEATER ENGINEER HELPER Sexual Orientation Straight 05/05/2021 8: 28 PM BEATER ENGINEER HELPER documented as of this encounter Nursing Notes * Immanuel Gotti, RN - 08/16/2023 11:04 AM CDT Renewed medication per medication refill standing order. Requested Prescriptions Signed Prescriptions Disp Refills Continuous Blood Gluc Transmit (DEXCOM G6 TRANSMITTER) 1 Each 3 Sig: CHANGE ONCE EVERY 90 DAYS. Authorizing Provider: MARCO CHAMBERLAIN Ordering User: IMMANUEL GOTTI * Buddy Fox Xrwcomm - 08/11/2023 7:40 PM CST Continuous Blood Gluc Transmit (DEXCOM G6 TRANSMITTER) [Pharmacy Med Name: DEXCOM G6 TRANSMITTER] Diabetes Supplies -> Unable to determine if patient is due for a renewal, please review. -> Refill x 12 months (until due for an office visit) Last qualifying visit: 07/12/2023 (in ENDOCRINOLOGY) Next scheduled visit: None Last ordered by MARCO CHAMBERLAIN: 11/04/2022 (280 days ago) QTY: 1, Refills: 2, Sig: change once every 90 days (unchanged) Age: 52 [employer] Embedded Refills, Reference: [id number], 08/11/2023 7:40:17 PM BEATER ENGINEER HELPER, Pool: ENDO PNREFILL ([id number]) documented in this encounter Plan of Treatment Upcoming Encounters Date Type Department Care Team (Late st Contact Info) Description 11/22/2023 3:00 PM CDT Appointment [facility] [address] [place] [address] Demetris Alvarez Scheduled Procedures Name Priority Associated Diagnoses Date/Ti me RELEASE TRIGGER FINGER Trigger ring finger of right hand Trigger ring finger of left hand documented as of this encounter Visit Diagnoses Diagnosis Type 1 diabetes mellitus with diabetic neuropathy (HRC) Type I (juvenile type) diabetes mellitus with neurological manifestations, not stated as uncontrolled documented in this encounter Care Teams Hotel Housekeeper Relationship Specialty [place] [address] [place] [address] PCP - General Family Practice 08/23/22 documented as of this encounter
--- OUTSIDE RECORDS SUMMARY | 2023-11-11 08:29 | XMS_ITS | Encounter Summary ---
[facility] Address [address], [place] [address] Care Team Providers Care Heel Slugger Name Role Phone Daniel Zelaya MD Primary Care Provider [phone] Encounter Details Date Type Department Care Team (Late st Contact Info) Description 08/16/2017 Correspondence External to External, [place] [address] INITIATION SETTINGS Social History Tobacco Use Types Packs/Day Years Used Date Smoking Tobacco: Former Cigarettes 0 06/06/1992 - 06/06/2007 Smokeless Tobacco: Never Alcohol Use Standard Drinks/Week Comments Yes 0 (1 standard drink = 0.6 oz pur e alcohol) Sex and Gender Information Value Date Recorded Sex Assigned at Female 05/05/2021 8:28 PM MANAGER DIGITAL AD OPERATIONS Gender Identity Female 05/05/2021 8:28 PM MANAGER DIGITAL AD OPERATIONS Sexual Orientation Straight 05/05/2021 8: 28 PM MANAGER DIGITAL AD OPERATIONS documented as of this encounter Plan of Treatment Upcoming Encounters Date Type Department Care Team (Late st Contact Info) Description 11/22/2023 3:00 PM CDT Appointment [facility] [address] [place] [address] Demetris Alvarez Scheduled Procedures Name Priority Associated Diagnoses Date/Ti me RELEASE TRIGGER FINGER Trigger ring finger of right hand Trigger ring finger of left hand documented as of this encounter Visit Diagnoses Not on filedocumented in this encounter Care Teams Heel Slugger Relationship Specialty [place] [address] [place] [address] PCP - General Family Practice 08/23/22 documented as of this encounter
--- OUTSIDE RECORDS SUMMARY | 2023-11-11 08:29 | XMS_ITS | Encounter Summary ---
Author Organization [facility] Address [address] [address] Care Team Providers Care Anesthesiology Resident Name Role Phone Daniel Zelaya MD Primary Care Provider [phone] Reason for Referral * Consult/Transfer Care (Routine) - New Request Specialty Diagnoses / Procedures Referred By Kristie white Referred To Contact Cardiology Diagnoses Myalgia [place] [address] [place] [address] Referral ID Status Reason Start Date Expiration Date V isits Requested Visits Authorized [id number] New Request 09/22/2023 12/21/2024 1 1 Scheduling Instructions Your provider has recommended an appointment with [facility]. You can quickly make your appointment online at [employer]/schedule. You can also call [phone] for help scheduling your appointment. We suggest you call your health insurance company about your coverage and benefits for this appointment. Question Answer Appointment Urgency? Non-Urgent Reason for visit? Arterial calcifications, intolerant of statin therapy * (Routine) - New Request Specialty Diagnoses / Procedures Referred By Kristie white Referred To Contact Diagnoses Screening for colon cancer Procedures Endoscopy, Colon, [place] [address] [place] [address] Referral ID Status Reason Start Date Expiration Date V isits Requested Visits Authorized [id number] New Request 09/22/2023 09/21/2025 1 1 Reason for Visit * Reason Comments RESULTS, TEST FATIGUE Encounter Details Date Type Department Care Team (Late st Contact Info) Description 09/22/2023 4:30 PM CDT Office Visit [place] [id number] [facility] [address] [place] [address] [place] [address] [place] [address] Fatigue, unspecified type (Primary Dx); Screening for colon cancer; Polyarthralgia; Myalgia; Arterial calcification; Anemia, unspecified type Social History Tobacco Use Types Packs/Day Years [...] Sex Assigned at Female 05/05/2021 8:28 PM LIFE SCIENCES MANAGER Gender Identity Female 05/05/2021 8:28 PM LIFE SCIENCES MANAGER Sexual Orientation Straight 05/05/2021 8: 28 PM LIFE SCIENCES MANAGER documented as of this encounter Last Filed Vital Signs Vital Sign Reading Time Taken Comments Blood Pressure 138/77 09/22/2023 4:47 PM CDT Pulse 80 09/22/2023 4:47 PM CDT Temperature - - Respiratory Rate 16 09/22/2023 4:25 PM CDT Oxygen Saturation - - Inhaled Oxygen Concentration - - Weight 67.6 kg (149 lb) 09/22/2023 4:25 PM CDT Height - - Body Mass Index 25.78 07/12/2023 3:13 PM LIFE SCIENCES MANAGER documented in this encounter Patient Instructions * Patient Instructions* Daniel Zelaya MD - 09/22/2023 4:30 PM CDT Increase lisinopril to 20 mg daily. Return for a blood draw 1-2 weeks after starting the higher dose. Schedule this before 10:00 AM. documented in this encounter Progress Notes * Daniel Zelaya MD - 09/22/2023 4:30 PM CDT Subjective Chief Complaint Patient presents with RESULTS, TEST FATIGUE Lizbeth Pretty is a 52 y.o. female who presents for follow up. The patient recently had labs done and presents for a review of these as well as concerns for fatigue. She has struggled with chronic fatigue for an unclear reason. She has obstructive sleep apnea, but wears her CPAP religiously and reports having a recent sleep visit which demonstrated good control. She also complains of achy joints and muscles and wonders if it might be related to rosuvastatin. She ended up stopping this 2-3 days ago and feels a little bit better today. She feels as though her mood has been okay and is improving with HRT. Objective BP 138/77 (BP Location: Left Arm) Pulse 80 Resp 16 Wt 149 lb (67.6 kg) LMP 04/21/2022 (Approximate) BMI 25.78 kg/m?? Physical Exam Vitals reviewed. Eyes: Conjunctiva/sclera: Conjunctivae normal. Pulmonary: Effort: Pulmonary effort is normal. Neurological: Mental Status: She is alert. Mental status is at baseline. Psychiatric: Mood and Affect: Mood and affect normal. Assessment/Plan Lizbeth was seen today for results, test and fatigue. Diagnoses and all orders for this visit: Fatigue, unspecified type - Basic Metabolic Panel; Future - Testosterone, female or children; Future Screening for colon cancer - Endoscopy, Colon, Screening/Diagnostic; Future Polyarthralgia - JOSÉ with Reflex to JOSÉ Profile 2; Future - C-Reactive Protein; Future Myalgia - Cardiology Consult-Adults - JOSÉ with Reflex to JOSÉ Profile 2; Future - C-Reactive Protein; Future - CK; Future Arterial calcification - Cardiology Consult-Adults Anemia, unspecified type - Complete Blood Count-No Diff; Future - Iron Profile (Iron,TIBC,%Sat.(Calc)); Future - Ferritin; Future Other orders - lisinopril (ZESTRIL) 20 MG tablet; Take 1 Tablet (20 mg) by mouth daily. Fatigue, myalgias, and polyarthralgia - Unclear etiology. Will obtain further testing as above. - We discussed that this may be related to statin therapy so it seems reasonable to trial discontinuation of this. She was previously on atorvastatin and switch to rosuvastatin and felt like things improved somewhat, but not substantially. - I do wonder more about the possibility of fibromyalgia or chronic fatigue syndrome. Her mother has fibromyalgia and autoimmune hepatitis. Depending on her laboratory results, may consider referral to Rheumatology. Essential hypertension - Blood pressure at goal, but borderline. - Will increase lisinopril to 20 mg daily. - Will update BMP 1-2 weeks after increasing dose. Arterial calcifications - Noted on numerous x-rays of her extremities. - We reviewed that she should be on statin therapy, but if this is causing her fatigue then certainly alternatives need to be found. For this reason, I will place a referral to Cardiology for consideration of PCKS9 inhibitor therapy. - Given she has been on statin therapy for 10+ years I will hold off on a CAC score. - Continue ASA 81 mg daily. Anemia - Unclear etiology. She has a history of colon polyps and is due for a colonoscopy so this was ordered. - Will obtain further iron panel at next blood draw as this could also be anemia of chronic disease. Total time for the visit was 54 minutes including, but not limited to, [id number] time spent reviewing records, preparing/gathering clinical data, counseling, ordering/interpretation of labs and imaging, documentation of clinical visit, and/or coordination of care. Daniel Zelaya MD 09/22/2023 Voice recognition software ([employer]) was used to generate this note. As a result, wrong word or '[id number]' substitutions may have occurred due to the inherent limitations of voice recognition software. There may be errors in the script that have gone undetected. Please consider this when interpreting information found in this chart. documented in this encounter Plan of Treatment Upcoming Encounters Date Type Department Care Team (Late st Contact Info) Description 11/22/2023 3:00 PM CDT Appointment [facility] [address] [place] [address] Demetris Alvarez Scheduled Orders Name Type Priority Associated Diagnoses Orde r Schedule Endoscopy, Colon, Screening/Diagnostic GI Routine Screening for colon cancer 1 Occurrences starting 09/22/2023 until 09/21/2025 Scheduled Procedures Name Priority Associated Diagnoses Date/Ti me RELEASE TRIGGER FINGER Trigger ring finger of right hand Trigger ring finger of left hand Scheduled Referrals Name Type Priority Associated Diagnoses Orde r Schedule Cardiology Consult-Adults Referral Routine Myalgia Arterial calcification Ordered: 09/22/2023 documented as of this encounter Results * CK (10/25/2023 4:04 PM CDT) [facility] CK, Total 79 29 - 168 U/L 10/25/2023 5:11 PM CDT [facility] Blood Venipuncture / Unknown 10/25/2023 4:04 PM CDT 10/25/2023 4:07 PM CDT Daniel Zelaya MD LAB_1 [facility] [address] [place] [address] * Ferritin (10/25/2023 4:04 PM CDT) [facility] Ferritin 64 9 - 204 ng/mL 10/25/2023 8:04 PM CDT [facility] Blood Venipuncture / Unknown 10/25/2023 4:04 PM CDT 10/25/2023 4:07 PM CDT Daniel Zelaya MD LAB_1 [facility] [address] * Iron Profile (Iron,TIBC,%Sat.(Calc)) (10/25/2023 4:04 PM CDT) [facility] Iron 105 50 - 170 mcg/dL 10/25/2023 7:53 PM CDT [facility] Transferrin 246 180 - 382 mg/dL 10/25/2023 7:53 PM CDT [facility] TIBC, Calculated 308 240 - 450 mcg/dL 10/25/2023 7:53 PM CDT [facility] % Saturation, Calculated 34 10 - 50 % 10/25/2023 7:53 PM CDT [facility] Blood Venipuncture / Unknown 10/25/2023 4:04 PM CDT 10/25/2023 4:07 PM CDT Daniel Zelaya MD LAB_1 [facility] [address] * (ABNORMAL) Complete Blood Count-No Diff (10/25/2023 4:04 PM CDT) [facility] WBC 5.0 3.5 - 10.5 x10(9)/L 10/25/2023 4:09 PM [facility] RBC 3.70(L) 3.90 - 5.03 x10(12)/L 10/25/2023 4:09 PM [facility] Hemoglobin 11.5(L) 12.0 - 15.5 g/dL 10/25/2023 4:09 PM [facility] HCT 34.7(L) 34.9 - 44.5 % 10/25/2023 4:09 PM [facility] MCV 93.8 80.0 - 100.0 fL 10/25/2023 4:09 PM [facility] MCH 31.1 27.6 - 33.3 pg 10/25/2023 4:09 PM [facility] MCHC 33.1 31.5 - 35.2 g/dL 10/25/2023 4:09 PM [facility] RDW 12.9 11.9 - 15.5 % 10/25/2023 4:09 PM [facility] Platelets 237 150 - 450 x10(9)/L 10/25/2023 4:09 PM [facility] Automated NRBC 0 <=0 /100 WBC 10/25/2023 4:09 PM CDT [facility] Blood Venipuncture / Unknown 10/25/2023 4:04 PM CDT 10/25/2023 4:07 PM CDT Daniel Zelaya MD LAB_1 Performing Organization Address [facility]/ZIP Co de Phone Number [facility] [address] [place] [address] * C-Reactive Protein (10/25/2023 4:04 PM CDT) [facility] C-Reactive Protein <0.5 0.0 - 0.5 mg/dL 10/25/2023 5:11 PM CDT [facility] Blood Venipuncture / Unknown 10/25/2023 4:04 PM CDT 10/25/2023 4:07 PM CDT Daniel Zelaya MD LAB_1 Performing Organization Address [facility]/ZIP Co de Phone Number [facility] [address] [place] [address] * JOSÉ with Reflex to JOSÉ Profile 2 (10/25/2023 4:04 PM CDT) Pathologist [facility] JOSÉ Interpretation Negative Negative 2023 11:45 AM CDT [facility] Blood Venipuncture / Unknown 10/25/2023 4:04 PM CDT 10/25/2023 4:07 PM CDT Daniel Zelaya MD LAB_1 [facility] [address] * Testosterone, female or children (10/25/2023 4:04 PM CDT) Pathologist [facility] Testosterone Female or Children 15 9 - 55 ng/dL 10/29/2023 3:38 PM CDT [facility] [employer] Comment: REFERENCE INTERVAL: Testosterone by [employer] Females Premenopausal ??9-55 ng/dL Postmenopausal 5-32 ng/dL INTERPRETIVE INFORMATION: Testosterone by [employer] Free or bioavailable testosterone measurements may provide supportive information. For individuals on testosterone-suppressing hormone therapies (e.g., antiandrogens or estrogens), refer to cisgender female reference intervals. For a complete set of all established reference intervals, refer to ltd[employer]/Tests/Pub/[id number]. This test was developed and its performance characteristics determined by [employer]. It has not been cleared or approved by the [place] Food and Drug Administration. This test was performed in a CLIA certified laboratory and is intended for clinical purposes. Performed By: [facility] [address] [place] [address] Sales And Marketing Professional: Hesham Ruff MD, PhD CLIA Number: [id number] Blood Venipuncture / Unknown 10/25/2023 4:04 PM CDT 10/25/2023 4:07 PM CDT Daniel Zelaya MD LAB_1 Performing Organization Address [facility]/State/ZIP Co de Phone Number [facility] [employer] [address] [place], [place] [address] [place] [address] * (ABNORMAL) Basic Metabolic Panel (10/25/2023 4:04 PM CDT) Sodium 139 136 - 145 mmol/L 10/25/2023 5:11 PM [facility] Potassium 4.4 3.5 - 5.1 mmol/L 10/25/2023 5:11 PM [facility] Chloride 104 98 - 109 mmol/L 10/25/2023 5:11 PM [facility] CO2 25 20 - 29 mmol/L 10/25/2023 5:11 PM [facility] Anion Gap 10 6 - 16 mmol/L 10/25/2023 5:11 PM [facility] Calcium 9.8 8.4 - 10.4 mg/dL 10/25/2023 5:11 PM [facility] BUN 13 7 - 26 mg/dL 10/25/2023 5:11 PM [facility] Creatinine 0.95 0.55 - 1.02 mg/dL 10/25/2023 5:11 PM [facility] Glucose 149(H) 70 - 100 mg/dL 10/25/2023 5:11 PM T [facility] Comment:The given reference range is for the fasting state. Non-fasting reference range for glucose is 70 - 180 mg/dL. GFR, Estimated >60 >60 mL/min/1.7 3m2 10/25/2023 5:11 PM T [facility] Hours Fasting 9.0 8 - 12 Hours 10/25/2023 5:11 PM T [facility] Blood Venipuncture / Unknown 10/25/2023 4:04 PM CDT 10/25/2023 4:07 PM CDT Daniel Zelaya MD LAB_1 [facility] [address] [place] [address], [facility] documented in this encounter Visit Diagnoses Diagnosis Fatigue, unspecified type- Primary Screening for colon cancer Special screening for malignant neoplasms, colon Polyarthralgia Pain in joint, multiple sites Myalgia Mylagia and myositis, unspecified Arterial calcification Anemia, unspecified type documented in this encounter Care Teams Anesthesiology Resident Relationship Specialty [place] [address] [place] [address] PCP - General Family Practice 08/23/22 documented as of this encounter
--- OUTSIDE RECORDS SUMMARY | 2023-11-11 08:29 | XMS_ITS | Encounter Summary ---
Author Organization [facility] Address [address], [place] [address] Care Team Providers Care Freezer Assistant Name Role Phone Daniel Zelaya MD Primary Care Provider [phone] Encounter Details Date Type Department Care Team (Late st Contact Info) Description 08/27/2015 [facility] [address] [place] [address] Julia Salter MD [address] [facility] [address], [place] [address] INSULIN TREATED DIABETES MELLITUS REPORT Social History Tobacco Use Types Packs/Day Years Used Date Smoking Tobacco: Former Cigarettes 0 06/06/1992 - 06/06/2007 Smokeless Tobacco: Never Alcohol Use Standard Drinks/Week Comments Yes 0 (1 standard drink = 0.6 oz pur e alcohol) Sex and Gender Information Value Date Recorded Sex Assigned at Female 05/05/2021 8:28 PM LINUX ADMIN Gender Identity Female 05/05/2021 8:28 PM LINUX ADMIN Sexual Orientation Straight 05/05/2021 8: 28 PM LINUX ADMIN documented as of this encounter Plan of Treatment Upcoming Encounters Date Type Department Care Team (Late st Contact Info) Description 11/22/2023 3:00 PM CDT Appointment [facility] [address] [place], [place] [address] Demetris Alvarez Scheduled Procedures Name Priority Associated Diagnoses Date/Ti me RELEASE TRIGGER FINGER Trigger ring finger of right hand Trigger ring finger of left hand documented as of this encounter Visit Diagnoses Not on filedocumented in this encounter Care Teams Freezer Assistant Relationship Specialty [place] [address] [place] [address] PCP - General Family Practice 08/23/22 documented as of this encounter
--- OUTSIDE RECORDS SUMMARY | 2023-11-11 08:29 | XMS_ITS | Encounter Summary ---
Author Organization [facility] Address [address] [place] [address] Care Team Providers Care Server Security Administrator Name Role Phone Daniel Zelaya MD Primary Care Provider [phone] Encounter Details Date Type Department Care Team (Late st Contact Info) Description 07/06/2023 E-Visit [facility] [address] [place] [address] Mychart, [place] [address] Social History Tobacco Use Types Packs/Day Years [...] Sex Assigned at Female 05/05/2021 8:28 PM MANAGEMENT TRAINEE PROGRAM STORES Gender Identity Female 05/05/2021 8:28 PM MANAGEMENT TRAINEE PROGRAM STORES Sexual Orientation Straight 05/05/2021 8: 28 PM MANAGEMENT TRAINEE PROGRAM STORES documented as of this encounter Plan of Treatment Upcoming Encounters Date Type Department Care Team (Late st Contact Info) Description 11/22/2023 3:00 PM CDT Appointment [facility] [address] [place] [address] Demetris Alvarez Scheduled Procedures Name Priority Associated Diagnoses Date/Ti me RELEASE TRIGGER FINGER Trigger ring finger of right hand Trigger ring finger of left hand documented as of this encounter Visit Diagnoses Not on filedocumented in this encounter Care Teams Server Security Administrator Relationship Specialty [place] [address] [place] [address] PCP - General Family Practice 08/23/22 documented as of this encounter
--- OUTSIDE RECORDS SUMMARY | 2023-11-11 08:29 | XMS_ITS | Encounter Summary ---
Author Organization [facility] Address [address], [place] [address] Care Team Providers Care Lumber Tallier Name Role Phone Daniel Zelaya MD Primary Care Provider [phone] Encounter Details Date Type Department Care Team (Late st Contact Info) Description 06/10/2017 [facility] [address] [facility] [address] [place] [address] Julia Salter MD [address] [facility] [address], [place] [id number] PRIOR AUTH Social History Tobacco Use Types Packs/Day Years Used Date Smoking Tobacco: Former Cigarettes 0 06/06/1992 - 06/06/2007 Smokeless Tobacco: Never Alcohol Use Standard Drinks/Week Comments Yes 0 (1 standard drink = 0.6 oz pur e alcohol) Sex and Gender Information Value Date Recorded Sex Assigned at Female 05/05/2021 8:28 PM SAUSAGE MEAT TRIMMER Gender Identity Female 05/05/2021 8:28 PM SAUSAGE MEAT TRIMMER Sexual Orientation Straight 05/05/2021 8: 28 PM SAUSAGE MEAT TRIMMER documented as of this encounter Plan of Treatment Upcoming Encounters Date Type Department Care Team (Late st Contact Info) Description 11/22/2023 3:00 PM CDT Appointment [facility] [address] [place], [place] [address] Demetris Alvarez Scheduled Procedures Name Priority Associated Diagnoses Date/Ti me RELEASE TRIGGER FINGER Trigger ring finger of right hand Trigger ring finger of left hand documented as of this encounter Visit Diagnoses Not on filedocumented in this encounter Care Teams Lumber Tallier Relationship Specialty [place] [address] [place] [address] PCP - General Family Practice 08/23/22 documented as of this encounter
--- OUTSIDE RECORDS SUMMARY | 2023-11-11 08:29 | XMS_ITS | Encounter Summary ---
Author Organization [facility] Address [address] [place] [address] Care Team Providers Care Sorter Lumber Straightener Name Role Phone Daniel Zelaya MD Primary Care Provider [phone] Encounter Details Date Type Department Care Team (Late st Contact Info) Description 08/30/2023 E-Visit [facility] [place] [address] [facility] [place] [address] Mychart, [place] [address] Social History Tobacco Use Types Packs/Day Years [...] Sex Assigned at Female 05/05/2021 8:28 PM 3D ANIMATOR Gender Identity Female 05/05/2021 8:28 PM 3D ANIMATOR Sexual Orientation Straight 05/05/2021 8: 28 PM 3D ANIMATOR documented as of this encounter Plan of Treatment Upcoming Encounters Date Type Department Care Team (Late st Contact Info) Description 11/22/2023 3:00 PM CDT Appointment [facility] [address] [place] [address] Demetris Alvarez Scheduled Procedures Name Priority Associated Diagnoses Date/Ti me RELEASE TRIGGER FINGER Trigger ring finger of right hand Trigger ring finger of left hand documented as of this encounter Visit Diagnoses Not on filedocumented in this encounter Care Teams Sorter Lumber Straightener Relationship Specialty [place] [address] [place] [address] PCP - General Family Practice 08/23/22 documented as of this encounter
--- OUTSIDE RECORDS SUMMARY | 2023-11-11 08:29 | XMS_ITS | Encounter Summary ---
Author Organization [facility] Address [address] [address] Care Team Providers Care Picker/Puller Name Role Phone Daniel Zelaya MD Primary Care Provider [phone] Encounter Details Date Type Department Care Team (Late st Contact Info) Description 05/12/2017 [facility] [address] [place] [address] Julia Salter MD [address] [facility] [address], [place] [address] DME MEDICAL REVIEW FORM Social History Tobacco Use Types Packs/Day Years Used Date Smoking Tobacco: Former Cigarettes 0 06/06/1992 - 06/06/2007 Smokeless Tobacco: Never Alcohol Use Standard Drinks/Week Comments Yes 0 (1 standard drink = 0.6 oz pur e alcohol) Sex and Gender Information Value Date Recorded Sex Assigned at Female 05/05/2021 8:28 PM ROOFER Gender Identity Female 05/05/2021 8:28 PM ROOFER Sexual Orientation Straight 05/05/2021 8: 28 PM ROOFER documented as of this encounter Plan of Treatment Upcoming Encounters Date Type Department Care Team (Late st Contact Info) Description 11/22/2023 3:00 PM CDT Appointment [facility] [address] [place], [place] [address] Demetris Alvarez Scheduled Procedures Name Priority Associated Diagnoses Date/Ti me RELEASE TRIGGER FINGER Trigger ring finger of right hand Trigger ring finger of left hand documented as of this encounter Visit Diagnoses Not on filedocumented in this encounter Care Teams Picker/Puller Relationship Specialty [place] [address] [place] [address] PCP - General Family Practice 08/23/22 documented as of this encounter
--- OUTSIDE RECORDS SUMMARY | 2023-11-11 08:29 | XMS_ITS | Encounter Summary ---
Author Organization [facility] Address [address] [address] Care Team Providers Care Manager Shipping Name Role Phone Daniel Zelaya MD Primary Care Provider [phone] Encounter Details Date Type Department Care Team (Late st Contact Info) Description 07/03/2013 [facility] [address] [facility] [address] [facility] [address] Julia Salter MD [address] [facility] [address], [place] [id number] [employer] Social History Tobacco Use Types Packs/Day Years Used Date Smoking Tobacco: Former Cigarettes 0 06/06/1992 - 06/06/2007 Smokeless Tobacco: Never Alcohol Use Standard Drinks/Week Comments Not Asked 0 (1 standard drink = 0.6 oz pur e alcohol) Sex and Gender Information Value Date Recorded Sex Assigned at Female 05/05/2021 8:28 PM MANAGER ADVANCED Gender Identity Female 05/05/2021 8:28 PM MANAGER ADVANCED Sexual Orientation Straight 05/05/2021 8: 28 PM MANAGER ADVANCED documented as of this encounter Progress Notes * Julia Salter MD - 07/03/2013 12:00 AM CST GER ADVANCED documented in this encounter Plan of Treatment Upcoming Encounters Date Type Department Care Team (Late st Contact Info) Description 11/22/2023 3:00 PM CDT Appointment [facility] [address] [place] [address] Demetris Alvarez Scheduled Procedures Name Priority Associated Diagnoses Date/Ti me RELEASE TRIGGER FINGER Trigger ring finger of right hand Trigger ring finger of left hand documented as of this encounter Visit Diagnoses Not on filedocumented in this encounter Care Teams Manager Shipping Relationship Specialty [place] [address] [place] [address] PCP - General Family Practice 08/23/22 documented as of this encounter
--- OUTSIDE RECORDS SUMMARY | 2023-11-11 08:29 | XMS_ITS | Encounter Summary ---
Author Organization [facility] Address [address], [place] [address] Care Team Providers Care Steeler Name Role Phone Daniel Zelaya MD Primary Care Provider [phone] Encounter Details Date Type Department Care Team (Late st Contact Info) Description 08/31/2013 Correspondence External to External, [place] [address] PT LETTER TO PROV FORM REQUEST Social History Tobacco Use Types Packs/Day Years Used Date Smoking Tobacco: Former Cigarettes 0 06/06/1992 - 06/06/2007 Smokeless Tobacco: Never Alcohol Use Standard Drinks/Week Comments Yes 0 (1 standard drink = 0.6 oz pur e alcohol) Sex and Gender Information Value Date Recorded Sex Assigned at Female 05/05/2021 8:28 PM CAR RACER Gender Identity Female 05/05/2021 8:28 PM CAR RACER Sexual Orientation Straight 05/05/2021 8: 28 PM CAR RACER documented as of this encounter Progress Notes * External, Provider - 08/31/2013 12:00 AM CDT documented in this encounter Plan of Treatment Upcoming Encounters Date Type Department Care Team (Late st Contact Info) Description 11/22/2023 3:00 PM CDT Appointment [facility] [address] [place], [place] [id number] Demetris Alvarez Scheduled Procedures Name Priority Associated Diagnoses Date/Ti me RELEASE TRIGGER FINGER Trigger ring finger of right hand Trigger ring finger of left hand documented as of this encounter Visit Diagnoses Not on filedocumented in this encounter Care Teams Steeler Relationship Specialty [place] [address] [place] [address] PCP - General Family Practice 08/23/22 documented as of this encounter
--- OUTSIDE RECORDS SUMMARY | 2023-11-11 08:29 | XMS_ITS | Encounter Summary ---
Author Organization [facility] Address [address] [place] [address] Care Team Providers Care Service And Repair Supervisor Name Role Phone Daniel Zelaya MD Primary Care Provider [phone] Encounter Details Date Type Department Care Team (Late st Contact Info) Description 09/26/2023 [facility] [address] [facility] [place] [address] Mycpedrot, [place] [address] Social History Tobacco Use Types Packs/Day Years [...] Sex Assigned at Female 05/05/2021 8:28 PM BEAD WRAPPER Gender Identity Female 05/05/2021 8:28 PM BEAD WRAPPER Sexual Orientation Straight 05/05/2021 8: 28 PM BEAD WRAPPER documented as of this encounter Plan of Treatment Upcoming Encounters Date Type Department Care Team (Late st Contact Info) Description 11/22/2023 3:00 PM CDT Appointment [facility] [address] [place] [address] Demetris Alvarez Scheduled Procedures Name Priority Associated Diagnoses Date/Ti me RELEASE TRIGGER FINGER Trigger ring finger of right hand Trigger ring finger of left hand documented as of this encounter Visit Diagnoses Not on filedocumented in this encounter Care Teams Service And Repair Supervisor Relationship Specialty [place] [address] [place] [address] PCP - General Family Practice 08/23/22 documented as of this encounter
--- OUTSIDE RECORDS SUMMARY | 2023-11-11 08:29 | XMS_ITS | Encounter Summary ---
Author Organization [facility] Address [address] [place] [address] Care Team Providers Care It Field Technician Name Role Phone Daniel Zelaya MD Primary Care Provider [phone] Encounter Details Date Type Department Care Team (Late st Contact Info) Description 08/31/2023 E-Visit [facility] [place] [id number] [facility] [place] [address] Mychart, [place] [address] Social History Tobacco Use Types Packs/Day Years [...] Sex Assigned at Female 05/05/2021 8:28 PM MODEL MAKING SUPERVISOR Gender Identity Female 05/05/2021 8:28 PM MODEL MAKING SUPERVISOR Sexual Orientation Straight 05/05/2021 8: 28 PM MODEL MAKING SUPERVISOR documented as of this encounter Plan of Treatment Upcoming Encounters Date Type Department Care Team (Late st Contact Info) Description 11/22/2023 3:00 PM CDT Appointment [facility] [address] [place] [address] Demetris Alvarez Scheduled Procedures Name Priority Associated Diagnoses Date/Ti me RELEASE TRIGGER FINGER Trigger ring finger of right hand Trigger ring finger of left hand documented as of this encounter Visit Diagnoses Not on filedocumented in this encounter Care Teams It Field Technician Relationship Specialty [place] [address] [place] [address] PCP - General Family Practice 08/23/22 documented as of this encounter
--- OUTSIDE RECORDS SUMMARY | 2023-11-11 08:29 | XMS_ITS | Encounter Summary ---
Author Organization [facility] Address [address], [place] [address] Care Team Providers Care Ripening Room Operator Name Role Phone Daniel Zelaya MD Primary Care Provider [phone] Encounter Details Date Type Department Care Team (Late st Contact Info) Description 03/22/2019 Refill Order [facility] [address] [facility] [address] [place] [address]. [place], [place] [id number] Gaston Walker MD [address] [place] [address] Social History Tobacco Use Types Packs/Day Years Used Date Smoking Tobacco: Former Cigarettes 0 06/06/1992 - 06/06/2007 Smokeless Tobacco: Never Alcohol Use Standard Drinks/Week Comments Yes 2 (1 standard drink = 0.6 oz pur e alcohol) Sex and Gender Information Value Date Recorded Sex Assigned at Female 05/05/2021 8:28 PM RN BEHAVIORAL HEALTH Gender Identity Female 05/05/2021 8:28 PM RN BEHAVIORAL HEALTH Sexual Orientation Straight 05/05/2021 8: 28 PM RN BEHAVIORAL HEALTH documented as of this encounter Plan of Treatment Upcoming Encounters Date Type Department Care Team (Late st Contact Info) Description 11/22/2023 3:00 PM CDT Appointment [facility] [address] [place], [place] [phone] Demetris Alvarez Scheduled Procedures Name Priority Associated Diagnoses Date/Ti me RELEASE TRIGGER FINGER Trigger ring finger of right hand Trigger ring finger of left hand documented as of this encounter Visit Diagnoses Diagnosis Encounter for long-term (current) use of medications- Primary Encounter for long-term (current) use of other medications documented in this encounter Care Teams Ripening Room Operator Relationship Specialty [place] [address] [place] [address] PCP - General Family Practice 08/23/22 documented as of this encounter
--- OUTSIDE RECORDS SUMMARY | 2023-11-11 08:29 | XMS_ITS | Encounter Summary ---
Author Organization [facility] Address [address], [place] [address] Care Team Providers Care Sieve Grader Tender Name Role Phone Daniel Zelaya MD Primary Care Provider [phone] Encounter Details Date Type Department Care Team (Late st Contact Info) Description 05/09/2012 Flowsheet External to External, [place] [address] [employer] Social History Tobacco Use Types Packs/Day Years Used Date Smoking Tobacco: Former Cigarettes 0 06/06/1992 - 06/06/2007 Smokeless Tobacco: Never Alcohol Use Standard Drinks/Week Comments Not Asked 0 (1 standard drink = 0.6 oz pur e alcohol) Sex and Gender Information Value Date Recorded Sex Assigned at Female 05/05/2021 8:28 PM VEHICLE BODY MAKER Gender Identity Female 05/05/2021 8:28 PM VEHICLE BODY MAKER Sexual Orientation Straight 05/05/2021 8: 28 PM VEHICLE BODY MAKER documented as of this encounter Progress Notes * External, Provider - 05/09/2012 12:00 AM CST CLE BODY MAKER documented in this encounter Plan of Treatment Upcoming Encounters Date Type Department Care Team (Late st Contact Info) Description 11/22/2023 3:00 PM CDT Appointment [facility] [address] [place], [place] [address] Demetris Alvarez Scheduled Procedures Name Priority Associated Diagnoses Date/Ti me RELEASE TRIGGER FINGER Trigger ring finger of right hand Trigger ring finger of left hand documented as of this encounter Visit Diagnoses Not on filedocumented in this encounter Care Teams Sieve Grader Tender Relationship Specialty [place] [address] [place] [address] PCP - General Family Practice 08/23/22 documented as of this encounter
--- OUTSIDE RECORDS SUMMARY | 2023-11-11 08:29 | XMS_ITS | Encounter Summary ---
Author Organization [facility] Address [address], [place] [address] Care Team Providers Care Boarder Steam Name Role Phone Daniel Zelaya MD Primary Care Provider [phone] Encounter Details Date Type Department Care Team (Late st Contact Info) Description 12/10/2013 Correspondence [facility] [address] [place] [address] Julia Salter MD [address] [facility] [address], [place] [address] [employer] Social History Tobacco Use Types Packs/Day Years Used Date Smoking Tobacco: Former Cigarettes 0 06/06/1992 - 06/06/2007 Smokeless Tobacco: Never Alcohol Use Standard Drinks/Week Comments Yes 0 (1 standard drink = 0.6 oz pur e alcohol) Sex and Gender Information Value Date Recorded Sex Assigned at Female 05/05/2021 8:28 PM CONTRACT CLERK Gender Identity Female 05/05/2021 8:28 PM CONTRACT CLERK Sexual Orientation Straight 05/05/2021 8: 28 PM CONTRACT CLERK documented as of this encounter Plan of Treatment Upcoming Encounters Date Type Department Care Team (Late st Contact Info) Description 11/22/2023 3:00 PM CDT Appointment [facility] [address] [place], [place] [address] Demetris Alvarez Scheduled Procedures Name Priority Associated Diagnoses Date/Ti me RELEASE TRIGGER FINGER Trigger ring finger of right hand Trigger ring finger of left hand documented as of this encounter Visit Diagnoses Not on filedocumented in this encounter Care Teams Boarder Steam Relationship Specialty [place] [address] [place] [address] PCP - General Family Practice 08/23/22 documented as of this encounter
--- OUTSIDE RECORDS SUMMARY | 2023-11-11 08:29 | XMS_ITS | Encounter Summary ---
Author Organization [facility] Address [address] [place] [address] Care Team Providers Care Development Chemist Name Role Phone Daniel Zelaya MD Primary Care Provider [phone] Encounter Details Date Type Department Care Team (Late st Contact Info) Description 12/01/2011 Scanned History External to Transferred Record, Provider [facility] Social History Tobacco Use Types Packs/Day Years Used Date Smoking Tobacco: Never Assessed Sex and Gender Information Value Date Recorded Sex Assigned at Female 05/05/2021 8:28 PM COMPUTER PROGRAMMER ANALYST Gender Identity Female 05/05/2021 8:28 PM COMPUTER PROGRAMMER ANALYST Sexual Orientation Straight 05/05/2021 8: 28 PM COMPUTER PROGRAMMER ANALYST documented as of this encounter Progress Notes * Transferred Record, Provider - 12/01/2011 12:00 AM CDT documented in this encounter Plan of Treatment Upcoming Encounters Date Type Department Care Team (Late st Contact Info) Description 11/22/2023 3:00 PM CDT Appointment [facility] [address] [place], [place] [phone] Demetris Alvarez Scheduled Procedures Name Priority Associated Diagnoses Date/Ti me RELEASE TRIGGER FINGER Trigger ring finger of right hand Trigger ring finger of left hand documented as of this encounter Visit Diagnoses Not on filedocumented in this encounter Care Teams Development Chemist Relationship Specialty [place] [address] [place] [address] PCP - General Family Practice 08/23/22 documented as of this encounter
--- OUTSIDE RECORDS SUMMARY | 2023-11-11 08:29 | XMS_ITS | Encounter Summary ---
Author Organization [facility] Address [address] [address] Care Team Providers Care Supply Technician Name Role Phone Daniel Zelaya MD Primary Care Provider [phone] Reason for Visit * Reason Comments Diabetes * Consult/Transfer Care (Routine) - New Request Specialty Diagnoses / Procedures Referred By Kristie white Referred To Contact Diagnoses Type 1 diabetes mellitus with diabetic neuropathy (HRC) Dontrell Chamberlain, BS [address] [place] [address] Referral ID Status Reason Start Date Expiration Date V isits Requested Visits Authorized [id number] New Request 07/12/2023 10/10/2024 1 1 Encounter Details Date Type Department Care Team (Late st Contact Info) Description 08/30/2023 2:15 PM CDT Telemedicine [facility] Diabetes Education [place] [address] [facility] [place] [address] Shyann Newell, BETON, LD, [facility] [address] [place] [address] Type 1 diabetes mellitus with diabetic neuropathy (HRC) (Primary Dx) Social History Tobacco Use [...] Sex Assigned at Female 05/05/2021 8:28 PM MEDICAL REVIEW COORDINATOR Gender Identity Female 05/05/2021 8:28 PM MEDICAL REVIEW COORDINATOR Sexual Orientation Straight 05/05/2021 8: 28 PM MEDICAL REVIEW COORDINATOR documented as of this encounter Progress Notes * Shyann Newell, RDN, LD, CDCES - 08/30/2023 2:15 PM CDT Subjective: Visit Type: Initial Prev Dx/Tandem Lizbeth attends visit unaccompanied. What is the most important concern you want to discuss today? - Would like advise on how to best utilize activity feature with T-Slim pump. Finds that reducing her basal rate to 35% works well when she goes for long walks. Turns pump off when she is planning todo a hike otherwise she will go low. - Eating has been sporadic. Admits that she needs to do better with pre-bolusing. Current Medications: Using Humalog with Tslim X2 pump. See Endo's note for basal rates, ICR, and SF. Usually eats one meal per day. Recently has started eating something in the morning. Trying to do better with eating throughout the day. Eats brunch and dinner on weekends, might have a couple of snacks. Time Typical Meal or Snack First Meal Hummus on a tortilla, or with turkey Snack Second Meal Skips or will have a protein bar Snack Third Meal Hello Fresh meal OR dry rub chicken wings OR spaghetti ~ usually protein, may have carb or substitute for a non-starchy veggies such as cauliflower rice or zucchini noodles Snack Reported nutrition changes: trying to eat breakfast Alcohol Intake: wine and beer~ 1-2 drinks with dinner on weekends Beverages: black coffee, ICE water Dining Out: not often~ usually eye balls carb counts when out to eat Current physical activity includes: likes to go for long walks and hikes Objective: Wt Readings from Last 3 Encounters: 07/12/23 150 lb 8 oz (68.3 kg) 01/04/23 146 lb (66.2 kg) 11/08/22 142 lb (64.4 kg) This is an individual appointment. No class appropriate for patient at this time. Patient is using Dexcom G6 with pump. Does not use phone apps for CGM or Tandem therefore newswriter was unable to retrieve CGM or pump data today. Lab results related to diabetes have been reviewed. Assessment and Plan: Plan: Medication: - No change - Encourage pre-bolusing. Set phone reminders stating check glucose, take insulin, and eat about 30minutes before meal times. - Activate exercise mode 1 hour before hike. Reviewed and provided carb adjustment for activity guide. Glucose Monitoring: - Continue glucose monitoring with G6 CGM. Patient will download G6 and T- Connect apps, newswriter to assist with set up at her follow-up appointment in October. Food/Exercise/Habit Change: - Recommend measuring foods X 1 week - Get back into the habit of reading nutrition labels. Recommended Penny Oshea as a resource. Shyann Newell RDN, DANIELLE, ZEFERINO 08/30/2023, 3:38 PM -Return for follow up on 10/12/23 This visit was conducted via video. Location of clinician: clinic Location of patient: home Time spent on video in [id number] contact with patient, if applicable: 48 Time spent with patient: 48 minutes Education content taught can be found in the diabetes education smartform documented in this encounter Plan of Treatment Upcoming Encounters Date Type Department Care Team (Late st Contact Info) Description 11/22/2023 3:00 PM CDT Appointment [facility] [address] [place], [place] [address] Demetris Alvarez Scheduled Procedures Name Priority Associated Diagnoses Date/Ti me RELEASE TRIGGER FINGER Trigger ring finger of right hand Trigger ring finger of left hand Scheduled Referrals Name Type Priority Associated Diagnoses Orde r Schedule Diabetes Education and MNT Referral Routine Type 1 diabetes mellitus with diabetic neuropathy (HRC) Ordered: 07/12/2023 documented as of this encounter Visit Diagnoses Diagnosis Type 1 diabetes mellitus with diabetic neuropathy (HRC)- Primary Type I (juvenile type) diabetes mellitus with neurological manifestations, 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
--- OUTSIDE RECORDS SUMMARY | 2023-11-11 08:29 | XMS_ITS | Encounter Summary ---
Author Organization [facility] Address [address] [place] [address] Care Team Providers Care Sock Examiner Name Role Phone Daniel Zelaya MD Primary Care Provider [phone] Encounter Details Date Type Department Care Team (Late st Contact Info) Description 07/13/2023 E-Visit [facility] [address] [place] [address] Dontrell Chamberlain MBBS [address] [place] [address] Dx: Type 1 diabetes mellitus with diabetic neuropathy [...] Sex Assigned at Female 05/05/2021 8:28 PM PAN SHOVER Gender Identity Female 05/05/2021 8:28 PM PAN SHOVER Sexual Orientation Straight 05/05/2021 8: 28 PM PAN SHOVER documented as of this encounter Plan of Treatment Upcoming Encounters Date Type Department Care Team (Late st Contact Info) Description 11/22/2023 3:00 PM CDT Appointment [facility] [address] [place] [address] Demetris Alvarez Scheduled Procedures Name Priority Associated Diagnoses Date/Ti me RELEASE TRIGGER FINGER Trigger ring finger of right hand Trigger ring finger of left hand documented as of this encounter Visit Diagnoses Diagnosis Type 1 diabetes mellitus with diabetic neuropathy (HRC)- Primary Type I (juvenile type) diabetes mellitus with neurological manifestations, not stated as uncontrolled documented in this encounter Care Teams Sock Examiner Relationship Specialty [place] [address] [place] [address] PCP - General Family Practice 08/23/22 documented as of this encounter
--- NOTE | 2023-11-11 09:41 | W.ANESCHARGE ---
Anesthesia Charges Start Date/Time Anesthesia Start Date: 11/11/23 Anesthesia Start Time: 09:06 Stop Date/Time Anesthesia Stop Date: 11/11/23 Anesthesia Stop Time: 09:40
--- NOTE | 2023-11-11 10:24 | W.ANESCHARGE ---
Anesthesia Charges Start Date/Time Anesthesia Start Date: 11/11/23 Anesthesia Start Time: 09:06 Stop Date/Time Anesthesia Stop Date: 11/11/23 Anesthesia Stop Time: 09:40
== END 2023-11-11 08:24 | disposition home or self-care (01) ==
LOC: OP CLINIC 08:25
PROVIDERS: Visit Provider Internal Medicine
DX: Z12.11 Encounter for screening for malignant neoplasm of colon (principal); Z86.010 Personal history of colon polyps
CPT/HCPCS: 00812; 45378; J2704